=== PATIENT | female | born 1950 | race Caucasian/White ===

== ENCOUNTER 2021-01-10 09:18 | Day surgery (SDC) | payer OTHER, SELFPAY ==
[2021-01-05 12:14] VITALS: BMI 39.3
--- NOTE | 2021-01-07 08:21 | HO.ANESPROP2 ---
Documented by User: Torrie Dorothy 01/07/21 08:22 HPI - Anesthesia Eval Consult details Narrative: 70yo F for Colonoscopy PMFSH Past Medical History Medical History Anxiety Asthma Depression Diabetes Elevated cholesterol GERD (gastroesophageal reflux disease) HTN (hypertension) Sleep apnea TIA (transient ischemic attack) Surgical History Surgical History H/O colonoscopy History of bunionectomy History of esophagogastroduodenoscopy (EGD) Hx of cardiac catheterization Hx of cholecystectomy Hx of hysterectomy Social History Social History Patient Tobacco Use Status: Former Tobacco user Tobacco use type: Cigarette Use of substances other than those prescribed or required for medical reasons: No Advance Directives Information Provided: No Meds Allergies Allergy/AdvReac Type Severity Reaction Status Date / Time No Known Allergies Allergy Verified 01/10/21 11:12 [No Known Allergies*] Home Medications Medication Instructions Recorded Confirmed Last Taken Type albuterol sulfate [Ventolin HFA] 2 puff INHALATION QID PRN 01/05/21 01/05/21 Unknown History amlodipine 1 tab PO DAILY 01/05/21 01/05/21 Unknown History aripiprazole 1 tab PO BEDTIME 01/05/21 01/05/21 Unknown History atorvastatin 1 tab PO DAILY 01/05/21 01/05/21 Unknown History ferrous sulfate [FeroSul] 1 tab PO BID 01/05/21 01/05/21 Unknown History furosemide 1 tab PO DAILY 01/05/21 01/05/21 Unknown History metformin 1 tab PO BID 01/05/21 01/05/21 Unknown History metoprolol succinate 1 tab PO DAILY 01/05/21 01/05/21 Unknown History multivitamin 1 tab PO DAILY 01/05/21 01/05/21 Unknown History omeprazole 1 cap PO DAILY 01/05/21 01/05/21 Unknown History oxcarbazepine 1 tab PO BID 01/05/21 01/05/21 Unknown History trazodone 100 mg PO BEDTIME 01/05/21 01/05/21 Unknown History venlafaxine 75 mg PO BEDTIME 01/05/21 01/05/21 Unknown History venlafaxine 225 mg PO QAM 01/05/21 01/05/21 Unknown History aspirin 1 tab PO DAILY 01/10/21 01/10/21 01/09/21 08:00 History Exam Exam Date and Time: January 07, [id number] Height,Weight and Vital Signs: Height 5 ft 4 in Weight 103.873 kg Assessment and Plan Assessment Anesthesia Assessment: Chart Reviewed Documented by User: Kelly Wolff 01/10/21 11:28 PMFSH Past Medical History Medical History Anxiety Asthma Depression Diabetes Elevated cholesterol GERD (gastroesophageal reflux disease) HTN (hypertension) Sleep apnea TIA (transient ischemic attack) Surgical History Surgical History H/O colonoscopy History of bunionectomy History of esophagogastroduodenoscopy (EGD) Hx of cardiac catheterization Hx of cholecystectomy Hx of hysterectomy Social History Social History Patient Tobacco Use Status: Former Tobacco user Tobacco use type: Cigarette Use of substances other than those prescribed or required for medical reasons: No Advance Directives Information Provided: No Meds Allergies Allergy/AdvReac Type Severity Reaction Status Date / Time No Known Allergies Allergy Verified 01/10/21 11:12 [No Known Allergies*] Home Medications Medication Instructions Recorded Confirmed Last Taken Type albuterol sulfate [Ventolin HFA] 2 puff INHALATION QID PRN 01/05/21 01/05/21 Unknown History amlodipine 1 tab PO DAILY 01/05/21 01/05/21 Unknown History aripiprazole 1 tab PO BEDTIME 01/05/21 01/05/21 Unknown History atorvastatin 1 tab PO DAILY 01/05/21 01/05/21 Unknown History ferrous sulfate [FeroSul] 1 tab PO BID 01/05/21 01/05/21 Unknown History furosemide 1 tab PO DAILY 01/05/21 01/05/21 Unknown History metformin 1 tab PO BID 01/05/21 01/05/21 Unknown History metoprolol succinate 1 tab PO DAILY 01/05/21 01/05/21 Unknown History multivitamin 1 tab PO DAILY 01/05/21 01/05/21 Unknown History omeprazole 1 cap PO DAILY 01/05/21 01/05/21 Unknown History oxcarbazepine 1 tab PO BID 01/05/21 01/05/21 Unknown History trazodone 100 mg PO BEDTIME 01/05/21 01/05/21 Unknown History venlafaxine 75 mg PO BEDTIME 01/05/21 01/05/21 Unknown History venlafaxine 225 mg PO QAM 01/05/21 01/05/21 Unknown History aspirin 1 tab PO DAILY 01/10/21 01/10/21 01/09/21 08:00 History Exam Airway Mallampati Class: II (Edentulous) TM Dist: >3cm Neck ROM: Full Loose/Missing/Broken Teeth: Yes, Upper and Lower Heart: RRR Lungs: CTA Assessment and Plan Assessment Anesthesia Assessment: Anesthesia Plan Discussed and Chart Reviewed Final Anesthetic Review NPO: Yes ASA Class: III Final Preanesthetic Review: Meds/Allgs Chart Reviewed, Consent Obtained/Reviewed and Anes Risks/Benef Reviewed Patient Risk: Intermediate Procedure Risk: Low Anesthetic Plan Anesthetic Plan: MAC: Disposition: Standard PACU
[2021-01-10 10:40] LABS: Glucose, Whole Blood 148 mg/dL (60-115)
[2021-01-10 10:50] VITALS: BP 178/76; PULSE 66; RESP 20; TEMP 36.4; O2SAT 93
[2021-01-10] MEDS: Lactated Ringers 1,000 ML 100 ML IVCONT (11:14)
[2021-01-10 12:30] VITALS: BP 128/54; PULSE 73; RESP 18; TEMP 37.2; O2SAT 98
--- NOTE | 2021-01-10 12:39 | P.BOP_ITS ---
Brief Operative Note Date of Service: 01/10/21 Pre-op diagnosis: Screening Post-op diagnosis: other (Colon polyps) Procedure: Colonoscopy to cecum and TI with snare polypectomy at 15cm with placement of 2 Resolution clips and marking with ink, snare polypectomy at 60cm, and bx/removal of TC polyps Surgeon: Navin Lui Anesthesia: MAC Was an [employer] used for this Procedure?: No Estimated blood loss (mL): 4.0 Pathology: other (A. Transverse colon polyps B. Polyp at 15cm) Condition: stable Disposition: PACU
[2021-01-10 12:45] VITALS: BP 128/60; PULSE 73; RESP 18; TEMP 37.2; O2SAT 95
--- NOTE | 2021-01-10 13:21 | OP_ITS ---
SURGEON: Navin Lui MD INDICATIONS: The patient presents for evaluation of colorectal cancer screening and personal history of tubular adenomas of the colon. Full consent has been obtained from her for this, including risks of bleeding and perforation. PREOPERATIVE DIAGNOSIS: POSTOPERATIVE DIAGNOSIS: PROCEDURE PERFORMED: Colonoscopy to the cecum and terminal ileum with snare polypectomy, placement of 2 resolution clips on the polypectomy site at 15 cm, and biopsy and removal of polyps. ESTIMATED BLOOD LOSS: COMPLICATIONS: ANESTHESIA: Monitored anesthesia care. ASSISTANTS: SPECIMENS: PREOPERATIVE DIAGNOSES: Colorectal cancer screening and personal history of tubular adenomas of the colon. POSTOPERATIVE DIAGNOSES: Colorectal cancer screening and personal history of tubular adenomas of the colon, colon polyps, diverticulosis, and internal hemorrhoids. DESCRIPTION OF PROCEDURE: The patient was placed in the left lateral decubitus position. The digital rectal exam revealed no abnormalities. The [employer] video pediatric colonoscope was entered into the rectum and advanced easily to the cecum. Once in the cecum, I did identify normal-appearing cecal pouch with appendiceal orifice and a normal-appearing ileocecal valve. The terminal ileum was cannulated and appeared normal. The scope was withdrawn back in the colon. The entire cecum and ileocecal valve appeared normal. The scope was slowly withdrawn assessing all mucosal surfaces carefully. Preparation was excellent. In the transverse colon, were 2 flat approximately 5 mm polyps, which were each biopsied and completely removed with the cold biopsy forceps, and placed in the same container. At 60 cm, was an approximately 8 mm polyp, which was snared, but not recovered. The polypectomy site appeared clean, without any sign of residual polyp nor bleeding. At 15 cm, was an approximately 2 to 2.5 cm ulcerated polyp on a fairly long stalk. The tip of the polyp was quite friable. I used 2 resolution clips to deploy at the base of the stalk with good deployment and good hemostasis. I then used a snare to remove the polyp just above the clips. The polyp was then recovered by retrieving it on the tip of the scope. The scope was readvanced back to the polypectomy site. The tip of the stalk just above the clip was well cauterized and there was no sign of any residual polyp nor bleeding. The area was irrigated and observed for at least 5 minutes without any bleeding. I did place a submucosal ink qian just proximal and just distal to the polypectomy site given the gross appearance of the polyp. There were small 5 mm or less polyps between 20 cm and the rectum, but these were not removed at this time. Once in the rectum, scope was retroflexed visualizing some small internal hemorrhoids, but no other pathology. The scope was straightened. Of note, there was also some [id number] amount of sigmoid diverticulosis. The scope was withdrawn from the patient. She tolerated the procedure well and was returned to the recovery area in stable condition. IMPRESSION: 1. Colon polyps, status post snare polypectomy with placement of resolution clips and marking with submucosal ink for the polyp at 15 cm, as well as biopsy and removal of polyps. 2. Diverticulosis. 3. Internal hemorrhoids. PLAN: The results of the pathology will be checked. Depending upon the results of the larger polyp at 15 cm, we would then determine when she needs her next colonoscopy. She was advised not to use any aspirin or NSAIDs for 1 week. This has been discussed with her daughter. MD PAIGE Cnator/RL / [phone] MTDDebra
== END 2021-01-10 14:05 | disposition home or self-care (01) ==
PROVIDERS: PCP Family Medicine; Visit Provider Internal Medicine
PROC: 0DJD8ZZ Inspection of Lower Intestinal Tract, Via Natural or Artificial Opening Endoscopic (ICD-10-PCS; CPT 45378; principal; 2021-01-10 10:50)
DX: Z12.11 Encounter for screening for malignant neoplasm of colon (principal); Z86.010 Personal history of colon polyps; D12.3 Benign neoplasm of transverse colon; K63.5 Polyp of colon; K57.30 Diverticulosis of large intestine without perforation or abscess without bleeding; K64.8 Other hemorrhoids; K58.2 Mixed irritable bowel syndrome; K21.9 Gastro-esophageal reflux disease without esophagitis; J45.909 Unspecified asthma, uncomplicated; F32.9 Major depressive disorder, single episode, unspecified; E11.9 Type 2 diabetes mellitus without complications; I10 Essential (primary) hypertension; G47.33 Obstructive sleep apnea (adult) (pediatric); Z79.84 Long term (current) use of oral hypoglycemic drugs; Z99.89 Dependence on other enabling machines and devices; Z79.899 Other long term (current) drug therapy; Z86.73 Personal history of transient ischemic attack (TIA), and cerebral infarction without residual deficits; Z79.82 Long term (current) use of aspirin
CPT/HCPCS: 45385; 45380; 45381; 82947; 88305

== ENCOUNTER 2021-04-08 07:19 | Outpatient (REF) | payer OTHER, SELFPAY | END 2021-04-08 07:20 | disposition home or self-care (01) | LOC: HO.HOSX 07:19 | PROVIDERS: Visit Provider Physician Assistant | DX: Z13.89 Encounter for screening for other disorder (principal) ==

== ENCOUNTER 2021-04-28 08:25 | Outpatient (REF) | payer OTHER, SELFPAY ==
--- NOTE | ~2021-04-28 | XR_ITS ---
EXAMINATION: XR KNEE, BILATERAL XR KNEE, RIGHT CLINICAL INFORMATION: Pain COMPARISON: 11/28/2016 TECHNIQUE: AP standing view of both knees. Lateral and sunrise views of the right knee. FINDINGS: Right knee: No fracture or subluxation. Moderate to severe medial compartment joint space narrowing. Mild patellofemoral compartment narrowing. Tricompartmental marginal osteophytes. No joint effusion. The appearance has progressed from 2017. Left knee: On the single view of the left knee there is no fracture or subluxation. Mild narrowing of the medial compartment is similar to prior. Vascular calcifications noted. XR/XR knee RT 2V IMPRESSION: Moderate tricompartmental degenerative changes of the right knee, progressed from 2017.
--- NOTE | ~2021-04-28 | XR_ITS ---
EXAMINATION: XR KNEE, BILATERAL XR KNEE, RIGHT CLINICAL INFORMATION: Pain COMPARISON: 11/28/2016 TECHNIQUE: AP standing view of both knees. Lateral and sunrise views of the right knee. FINDINGS: Right knee: No fracture or subluxation. Moderate to severe medial compartment joint space narrowing. Mild patellofemoral compartment narrowing. Tricompartmental marginal osteophytes. No joint effusion. The appearance has progressed from 2017. Left knee: On the single view of the left knee there is no fracture or subluxation. Mild narrowing of the medial compartment is similar to prior. Vascular calcifications noted. XR/XR knee standing BI IMPRESSION: Moderate tricompartmental degenerative changes of the right knee, progressed from 2017.
== END 2021-04-28 08:26 | disposition home or self-care (01) ==
LOC: HO.HOSX 08:25
PROVIDERS: Visit Provider Orthopaedic Surgery
DX: M17.11 Unilateral primary osteoarthritis, right knee (principal); E11.9 Type 2 diabetes mellitus without complications; E66.01 Morbid (severe) obesity due to excess calories
CPT/HCPCS: 20610; 73560; 73565; 99202; J1040; J1100

== ENCOUNTER 2021-09-07 09:00 | Outpatient (RCR) | payer OTHER, SELFPAY | END 2021-11-01 10:17 | disposition home or self-care (01) | LOC: HO.OT 09:00 | PROVIDERS: PCP Family Medicine; Visit Provider Family Medicine | DX: I89.0 Lymphedema, not elsewhere classified (principal) | CPT/HCPCS: 97140 ==

== ENCOUNTER → 2021-09-22 08:35 | Outpatient (BNVA) | payer OTHER, SELFPAY | PROVIDERS: PCP Family Medicine; Visit Provider Orthopaedic Surgery | DX: M17.11 Unilateral primary osteoarthritis, right knee (principal); E11.9 Type 2 diabetes mellitus without complications | CPT/HCPCS: 20610; 99212; J1100 ==

== ENCOUNTER → 2022-01-23 15:19 | Outpatient (BNVA) | payer OTHER, SELFPAY | PROVIDERS: PCP Family Medicine; Visit Provider Physician Assistant | DX: M17.11 Unilateral primary osteoarthritis, right knee (principal); E11.9 Type 2 diabetes mellitus without complications | CPT/HCPCS: 20610; 99212; J1020 ==

== ENCOUNTER 2022-07-04 10:42 | Outpatient (REF) | payer OTHER, SELFPAY | END 2022-07-04 10:43 | disposition home or self-care (01) | LOC: HO.LAB 10:42 | PROVIDERS: Visit Provider Nurse Practitioner Family | DX: R30.0 Dysuria (principal) | CPT/HCPCS: 87086 ==

== ENCOUNTER 2022-11-06 10:37 | Outpatient (REF) | payer OTHER, SELFPAY | END 2022-11-06 10:38 | disposition home or self-care (01) | LOC: HO.HOSX 10:37 | PROVIDERS: Visit Provider Physician Assistant | DX: Z13.89 Encounter for screening for other disorder (principal) ==

== ENCOUNTER 2022-12-07 08:32 | Outpatient (REF) | payer OTHER, SELFPAY | END 2022-12-07 08:33 | disposition home or self-care (01) | LOC: HO.HOSX 08:32 | PROVIDERS: Visit Provider Physician Assistant | DX: Z13.89 Encounter for screening for other disorder (principal) ==

== ENCOUNTER 2023-12-13 15:12 | Emergency (ER) | payer OTHER, SELFPAY ==
--- NOTE | ~2023-12-13 | XR_ITS ---
EXAMINATION: XR HIP, LEFT CLINICAL INFORMATION: Left pelvic pain after fall COMPARISON: None available. TECHNIQUE: Two views of the left hip. FINDINGS: No fracture, dislocation or destructive process. There is degenerative change of both hips right greater than left. The pelvis is intact. SI joints are symmetric. There is advanced degenerative change throughout the lumbar spine. XR/XR hip LT w PEL1V IMPRESSION: Chronic changes noted. No fracture.
[2023-12-13 15:23] VITALS: BP 126/68; PULSE 59; O2SAT 96
[2023-12-13 15:27] VITALS: BP 139/54; PULSE 60; RESP 17; TEMP 37; O2SAT 97; BMI 28.3
--- NOTE | 2023-12-13 15:39 | ED.FALL ---
HPI - Fall General Chief Complaint: Fall Stated Complaint: right side pain after fall Time Seen by Provider: 12/13/23 15:39 Source: patient Mode of arrival: EMS Limitations: no limitations History of Present Illness ED Provider: Himanshu HPI Narrative: 73-year-old female with history of morbid obesity, OA, diabetes presents after a fall at home. Patient states she was trying to use the bathroom, her pants were around her knees, she subsequently tripped, falling backwards landing on her buttock. Patient complains of left buttock pain. Patient did not strike her head, no loss consciousness, no preceding palpitations or chest pain. MD complaint: fall Related Data Home Medications ?Medication ?Instructions ?Recorded ?Confirmed albuterol sulfate 90 mcg/actuation 2 puff inhalation QID PRN Wheezing 01/05/21 01/05/21 aerosol inhaler (Ventolin HFA) amlodipine 10 mg tablet 1 tab PO DAILY 01/05/21 01/05/21 aripiprazole 20 mg tablet 1 tab PO BEDTIME 01/05/21 01/05/21 atorvastatin 40 mg tablet 1 tab PO DAILY 01/05/21 01/05/21 ferrous sulfate 325 mg (65 mg 1 tab PO BID 01/05/21 01/05/21 iron) tablet (FeroSul) furosemide 40 mg tablet 1 tab PO DAILY 01/05/21 01/05/21 metformin 500 mg tablet 1 tab PO BID 01/05/21 01/05/21 metoprolol succinate 100 mg 1 tab PO DAILY 01/05/21 01/05/21 tablet,extended release 24 hr multivitamin 1 tab PO DAILY 01/05/21 01/05/21 omeprazole 20 mg capsule,delayed 1 cap PO DAILY 01/05/21 01/05/21 release oxcarbazepine 150 mg tablet 1 tab PO BID 01/05/21 01/05/21 trazodone 50 mg tablet 100 mg PO BEDTIME 01/05/21 01/05/21 venlafaxine 75 mg tablet 75 mg PO BEDTIME 01/05/21 01/05/21 venlafaxine 75 mg tablet,extended 225 mg PO QAM 01/05/21 01/05/21 release 24 hr aspirin 81 mg tablet,delayed 1 tab PO DAILY 01/10/21 01/10/21 release empagliflozin 10 mg tablet 10 mg PO DAILY 09/22/21 (Jardiance) Previous Rx's ?Medication ?Instructions ?Recorded nitrofurantoin macrocrystal 100 mg 100 mg PO Q12H 5 days #10 caps 07/04/22 capsule triamcinolone acetonide 0.025 % 1 appl topical BID #15 grams 07/04/22 topical ointment Allergies Allergy/AdvReac Type Severity Reaction Status Date / Time No Known Allergies Allergy Verified 12/13/23 15:29 [No Known Allergies*] Review of Systems Review of Systems: Yes all other systems are reviewed and are negative Constitutional: Constitutional: Reports no additional constitutional complaints and Denies fever(s) Cardiovascular: Cardiovascular: Denies chest pain, Denies palpitations and Denies dyspnea Respiratory: Respiratory: Denies dyspnea Musculoskeletal: Musculoskeletal: Reports arthralgias Endocrine: Endocrine: Denies palpitations PMFSH Past Medical History Attestation statement: The following information was validated with the patient. Medical History Anxiety Asthma Depression Diabetes Elevated cholesterol GERD (gastroesophageal reflux disease) HTN (hypertension) Sleep apnea TIA (transient ischemic attack) Surgical History H/O colonoscopy History of bunionectomy History of esophagogastroduodenoscopy (EGD) Hx of cardiac catheterization Hx of cholecystectomy Hx of hysterectomy Social History Social History Patient Tobacco Use Status: Former Tobacco user Tobacco use type: Cigarette Smoked in Last 30 Days: No Advance Directives: Yes Advance Directives Information Provided: No Advance Directives on File: No Physical Exam Vital Signs: Vital Signs: Last Vital Signs Temp 98.6 F 12/13/23 15:27 Pulse 60 12/13/23 15:27 Resp 17 12/13/23 15:27 BP 139/54 L 12/13/23 15:27 Pulse Ox 97 12/13/23 15:27 O2 Del Method Room Air 12/13/23 15:27 BMI result Body Mass Index 28.3 Const: Other: Alert well in appearance, no sign of head trauma on exam Eyes: Pupils: Equal, round and reactive pupils present Neck: Other: Soft supple, full range of motion no midline tenderness Resp: Other: Nonlabored respiration Cardio: Other: Normal peripheral perfusion Skin: Other: No rash Neuro: Other: Alert and oriented x3 Cranial nerves: Yes Equal, round and reactive pupils present Extrem: Other: Patient has full range of motion of the left lower extremity, she is able to perform straight leg raise greater than 30?, she can flex and extend from the knee, no deformity noted over the left hip. Palpable pain over left posterior pelvis Psych: Other: , cooperative Medications Administered Discontinued Medications Generic Name Dose Route Start Last Admin Trade Name Carlotta PRN Reason Stop Dose Admin Acetaminophen 975 mg 12/13/23 15:43 12/13/23 15:50 Acetaminophen 325 Mg Tablet PO 12/13/23 15:44 975 mg ONCE ONE Administration Ibuprofen 600 mg 12/13/23 15:43 12/13/23 15:50 Ibuprofen 600 Mg Tablet PO 12/13/23 15:44 Not Given ONCE ONE Medical Decision Making Medical Decision Making MDM Narrative: 73-year-old female with history of morbid obesity, OA, diabetes presents after a fall at home. Patient states she was trying to use the bathroom, her pants were around her knees, she subsequently tripped, falling backwards landing on her buttock. Patient complains of left buttock pain. Patient did not strike her head, no loss consciousness, no preceding palpitations or chest pain. Problem: Age, obesity, diabetes History: Per patient I have considered the following differential diagnoses: Fracture, dislocation, contusion, musculoskeletal strain Plan: Ordering an x-ray, I have very low suspicion for fracture or dislocation, no indication for labs. Giving Tylenol and ibuprofen I have independently reviewed the following tests: X-ray left hip with pelvis:EXAMINATION: XR HIP, LEFT CLINICAL INFORMATION: Left pelvic pain after fall COMPARISON: None available. TECHNIQUE: Two views of the left hip. FINDINGS: No fracture, dislocation or destructive process. There is degenerative change of both hips right greater than left. The pelvis is intact. SI joints are symmetric. There is advanced degenerative change throughout the lumbar spine. XR/XR hip LT w PEL1V IMPRESSION: Chronic changes noted. No fracture. Differential Diagnosis Differential Diagnoses: The differential diagnosis associated with the presentation includes Fracture, dislocation, contusion, musculoskeletal strain Discharge Plan Discharge Clinical Impression: Contusion of left buttock Patient Disposition: Home, Self-Care Instructions: Contusion in Adults (ED) Additional Instructions: The x-ray of your left hip and pelvis were negative for fracture. You sustained a contusion, this is another word for bruise. See home care instructions. You can use [id number]-[id number] acetaminophen 1000 mg taken every 8 hours, alternated with use of [id number] ibuprofen 600 mg every 6 hours with food, for your discomfort. Follow up with your primary care provider as needed Prescriptions: No Action multivitamin Tablet 1 tab PO DAILY furosemide 40 mg tablet 1 tab PO DAILY atorvastatin 40 mg tablet 1 tab PO DAILY metformin 500 mg tablet 1 tab PO BID oxcarbazepine 150 mg tablet 1 tab PO BID venlafaxine 75 mg Tablet 75 mg PO BEDTIME trazodone 50 mg tablet 100 mg PO BEDTIME metoprolol succinate 100 mg tablet extended release 24 hr 1 tab PO DAILY amlodipine 10 mg tablet 1 tab PO DAILY ferrous sulfate [FeroSul] 325 mg (65 mg iron) tablet 1 tab PO BID omeprazole 20 mg capsule,delayed release(DR/EC) 1 cap PO DAILY albuterol sulfate [Ventolin HFA] 90 mcg/actuation Hfa Aerosol Inhaler 2 puff INHALATION QID PRN (Reason: Wheezing) aripiprazole 20 mg tablet 1 tab PO BEDTIME venlafaxine 75 mg tablet extended release 24hr 225 mg PO QAM aspirin 81 mg tablet,delayed release (DR/EC) 1 tab PO DAILY nitrofurantoin macrocrystal 100 mg capsule 100 mg PO Q12H 5 Days Qty: 10 0RF Rx Instructions: must administer with a meal/food triamcinolone acetonide 0.025 % ointment 1 appl topical BID Qty: 15 1RF Rx Instructions: Apply to irritated vulvar area twice a day. Jardiance 10 mg tablet 10 mg PO DAILY Print Language: Telugu
[2023-12-13] MEDS: Acetaminophen 325 MG TABLET 975 MG PO (15:50)
[2023-12-13 17:43] VITALS: BP 160/61; PULSE 68; RESP 18; TEMP 36.7; O2SAT 96
== END 2023-12-13 18:03 | disposition home or self-care (01) ==
PROVIDERS: Emergency Provider Emergency Medicine; PCP Family Medicine
DX: S30.0XXA Contusion of lower back and pelvis, initial encounter (principal); E11.9 Type 2 diabetes mellitus without complications; I10 Essential (primary) hypertension; Z86.73 Personal history of transient ischemic attack (TIA), and cerebral infarction without residual deficits; W19.XXXA Unspecified fall, initial encounter; Y93.9 Activity, unspecified; Y92.009 Unspecified place in unspecified non-institutional (private) residence as the place of occurrence of the external cause; Y99.9 Unspecified external cause status
CPT/HCPCS: 73502; 99283; 99284

== ENCOUNTER 2024-12-24 08:55 | Outpatient (AMB) | payer OTHER, SELFPAY ==
--- NOTE | 2024-12-24 08:56 | MHC.OFFVIS ---
Vital Signs 12/24/24 09:05 Weight 208 lb BP 161/70 H Blood Pressure Location Rt brachial Position Sitting Pulse 67 Intake Visit Reasons: Hemorrhoids Intake Note: Patient referred by Dr. Lui for external hemorrhoids. Taking fiber pills. Patient c/o: pain and bleeding noticed when wiping after BM. Frequent ER visits due to bleeding. Having black stools. Information Assurance Required: No Accompanied by: daughter Jen Allergies No Known Allergies (No Known Allergies*) Allergy (Verified 12/24/24 09:02) Medication List - Last Reconciled 12/24/24 by Mehul Sarkar MD amlodipine 1 tab PO DAILY aripiprazole 1 tab PO BEDTIME aspirin 1 tab PO DAILY atorvastatin 1 tab PO DAILY ferrous sulfate (FeroSul) 1 tab PO BID furosemide 1 tab PO DAILY metformin 1 tab PO BID metoprolol succinate ER 1 tab PO DAILY multivitamin 1 tab PO DAILY omeprazole 1 cap PO DAILY psyllium seed (sugar) (Metamucil (sugar) oral powder) 1 tbsp PO BID trazodone 100 mg PO BEDTIME triamcinolone acetonide 0.025% 1 appl topical BID venlafaxine 75 mg PO BEDTIME venlafaxine ER 225 mg PO QAM HPI HPI Hemorrhoids: Details: [age] year old referred for hemorrhoid issues. She says she has had hemorrhoids for many years although this has been minimally problematic. However, for the past year, she describes frequent bleeding with bowel movements along with some pain and swelling. She says that she has IBS and has a problem with chronic constipation and diarrhea. She says that her hemorrhoids become painful with her bowel movements. She had a colonoscopy about [address] Lui and she says she had 2 small polyps removed. She is not on blood thinners. She does not ambulate because of chronic back problems. She is usually in a wheelchair although she is able to walk short distances at home. [facility] Medical History (Updated 12/24/24 @ 09:23 by Mehul Sarkar MD) Bleeding hemorrhoids TIA (transient ischemic attack) Asthma Anxiety Depression Sleep apnea Diabetes GERD (gastroesophageal reflux disease) Elevated cholesterol HTN (hypertension) Surgical History Hx of cardiac catheterization Hx of hysterectomy Hx of cholecystectomy H/O colonoscopy History of esophagogastroduodenoscopy (EGD) History of bunionectomy Social History Patient Tobacco Use Status: Former Tobacco user Tobacco use type: Cigarette Review of Systems Const Denies chills and Denies fever(s) Card Denies chest pain, Denies dyspnea and Denies dyspnea on exertion Resp Denies cough, Denies dyspnea and Denies dyspnea on exertion GI Reports hematochezia, Denies change in bowel habits, Reports constipation and Reports diarrhea Denies hematuria Musc Reports back pain, Reports arthralgias and Reports limited range of motion Neuro Denies focal weakness and Denies convulsions Psych Denies depression and Denies mood swings Physical Exam Const Other: On wheelchair General: comfortable and no acute distress Nutritional Appearance: obese Orientation/consciousness: patient oriented x3 Neck Neck: Yes no lymphadenopathy Resp Auscultation: clear to auscultation bilaterally Cardio Rhythm: regular rhythm GI Other: Rectal exam shows internal external hemorrhoids with prolapse internal component both left and right side Palpation (GI): Soft to palpation, nontender and no guarding Neuro General: patient oriented x3 Office Procedures Anoscopy She was in kneeling phyllis-knife position. The anoscope was gently inserted a full examination of the anal canal was done. She did have internal external hemorrhoids on both the left and right side which appeared to be moderate size. The internal component seemed to prolapse easily on both left and right. There were no other lesions. There was no fissure. There was no ulceration. There was no induration. There was no bleeding currently. [id number] Assessment & Plan Assessment & Plan (1) Bleeding hemorrhoids: Code(s): K64.9 - Unspecified hemorrhoids Category: Medical Plan: She has internal and external hemorrhoids along with periodic pain and bleeding. She does have a problem with chronic constipation and diarrhea because of the IBS I explained to her that the 1st step with managed being her hemorrhoid issues would be to control her bowel movements well. I would recommend putting her on a regimen of Metamucil powder, 1 tbsp in a glass of juice or water twice a day. I explained to her what hemorrhoids surgery is and I explained to her the risks including but not limited to bleeding, infections, inherent risks of anesthesia especially with her age She understands and will come back to me in about [address] Lui closely. I told her that I do not think she needs urgent colonoscopy at this time. Medications: New psyllium seed (sugar) (Metamucil (sugar) oral powder) 1 tbsp PO BID 1,254 grams 2RF Coding Level of Care Code New Pt Level 3 (16471) Diagnoses Bleeding hemorrhoids K64.9 CPT Codes Details - CPT: 96472-Poxpawes ([id number])
[2024-12-24 09:05] VITALS: BP 161/70; PULSE 67
--- OUTSIDE RECORDS SUMMARY | 2024-12-24 09:33 | XMS_ITS | Clinical Summary ---
Author Organization [address] [facility] Address [address] [place] [address] Phone Care Team Providers Care Take Down Inspector Name Role Phone Darnell Verduzco MD Primary Care Provider [phone] Allergies No known active allergies Medications apixaban (ELIQUIS) 5 mg tablet Take by mouth. Active clotrimazole (LOTRIMIN) 1 % cream Apply to skin daily for 6 weeks 3 Active empagliflozin (Jardiance) 10 mg tablet Take 1 tablet (10 mg total) by mouth 1 (one) time each day. Active Lactobacillus acidophilus capsule Take by mouth. Active acetaminophen (TYLENOL) 325 mg tablet Take 2 tablets (650 mg total) by mouth every 6 (six) hours if needed. Active Lactobacillus acidophilus (PROBIOTIC ORAL) Take by mouth. Active amLODIPine (NORVASC) 5 mg tablet Take 1 tablet (5 mg total) by mouth 1 (one) time each day. Active ARIPiprazole (ABILIFY) 20 mg tablet Take 1 tablet (20 mg total) by mouth 1 (one) time each day. Active aspirin 81 mg EC tablet Take 1 tablet (81 mg total) by mouth 1 (one) time each day. Active atorvastatin (LIPITOR) 40 mg tablet Take 1 tablet (40 mg total) by mouth 1 (one) time each day. Active ferrous sulfate 325 mg (65 mg elemental iron) tablet Take 1 tablet (325 mg total) by mouth 1 (one) time each day. Active folic acid (FOLVITE) 1 mg tablet Take 1 tablet (1,000 mcg total) by mouth 1 (one) time each day. Active glucagon (GLUCAGEN INJ) Inject as directed. Active furosemide (LASIX) 40 mg tablet Take 1 tablet (40 mg total) by mouth 1 (one) time each day. Active metFORMIN (GLUCOPHAGE) 500 mg tablet Take 1 Tablet by mouth 2 times daily (with meals). Active metoprolol succinate (TOPROL-XL) 100 mg 24 hr tablet Take 1 tablet (100 mg total) by mouth 1 (one) time each day. Active metroNIDAZOLE (FLAGYL) 500 mg tablet Take 1 Tablet by mouth 3 times daily. Active omeprazole (PriLOSEC) [address] capsule Take 1 capsule (20 mg total) by mouth 1 (one) time each day. Active OXcarbazepine (TRILEPTAL) 150 mg tablet Take 1 tablet (150 mg total) by mouth 2 (two) times a day. Active traZODone (DESYREL) 50 mg tablet Take 1 Tablet by mouth at bedtime. Active venlafaxine (EFFEXOR) 100 mg tablet Take 1 Tablet by mouth 3 times daily. Active venlafaxine (EFFEXOR) 50 mg tablet Take 1 Tablet by mouth 3 times daily. Active lidocaine (LIDODERM) 5 % patchIndications:D iabetic mononeuropathy simplex (CMS/HCC V24, CMS/HCC V28) Apply 1 patch topically 1 (one) time each day. Remove & discard patch within 12 hours or as directed by . 30 each 2 01/07/20 25 Active Active Problems No known active problems Encounters Date Type Department Care Team Description 11/20/2024 3:10 PM EDT - 11/20/2024 9:[address] [facility] [address] [place] [phone] Rodríguez Smith, Rectal bleeding (Primary Dx) Discharge Disposition: Home or Self Care 10/25/2024 6:51 PM EDT - 10/26/2024 1:[address] [facility] [address] [place] [address] [phone] Nausea (Primary Dx); Chest pain, unspecified type Discharge Disposition: Home or Self Care 10/08/2024 9:00 AM EDT Office Visit Orthopedic Surgery - [address] [phone] Usman Frye, DPM Diabetic mononeuropathy simplex ([facility] V24, [facility] V28) (Primary Dx); Ankle instability, left; Peripheral venous insufficiency; Dermatophytosis of nail; Pain in toe of left foot; Pain in toe of right foot; Type II diabetes mellitus with peripheral circulatory disorder ([facility] V24, [facility] V28); Corns and callosities from Last 3 Months Surgical History Surgery Date Site/Laterality Comments OTHER SURGICAL HISTORY 04/06/2022 PROCEDURE: AK REVSC OPN/PRQ FEM/POP W/ATHRC/ANGIOP SM VSL OTHER SURGICAL HISTORY 04/06/2022 PROCEDURE: ULTRASOUND GUIDANCE FOR VASCULAR AC Medical History Medical History Date Comments Diabetes mellitus ([facility] V24, [facility] V28) Social History Tobacco Use Types Packs/Day Years Used Date Smoking Tobacco: Never Smokeless Tobacco: Never Tobacco Cessation:Counseling Given: Not Answered Alcohol Use Standard Drinks/Week Comments Never 0 (1 standard drink = 0.6 oz pur e alcohol) Comments Unknown Sex and Gender Information Value Date Recorded Sex Assigned at Female 06/18/2024 3:06 PM EST Legal Sex Female 6:44 AM EST Gender Identity Female 06/18/2024 3:06 PM EST Sexual Orientation Not on file Obstetrics History Last Filed Vital Signs Vital Sign Reading Time Taken Comments Blood Pressure 154/75 11/20/2024 3:15 PM EDT Pulse 86 11/20/2024 3:15 PM EDT Temperature 36.9 C (98.5 F) 11/20/2024 3:15 PM EDT Respiratory Rate 18 11/20/2024 3:15 PM EDT Oxygen Saturation 95% 11/20/2024 3:15 PM EDT Inhaled Oxygen Concentration - - Weight 95.3 kg (210 lb) 11/20/2024 3:15 PM EDT Height 165.1 cm (5' 5 ) 11/20/2024 3:15 PM EDT Body Mass Index 34.95 11/20/2024 3:15 PM EDT Plan of Treatment Upcoming Encounters Date Type Department Care Team (Late st Contact Info) Description 01/08/2025 9:00 AM EDT Office Visit Orthopedic Surgery - [address] [phone] Usman Frye, DPM [facility] [address] [place] [address] Health Maintenance Due Date Last Done Comments Diabetes: Annual Foot Exam 01/12/1960 Diabetes: Annual Retina Eye Exam 01/12/1958 Zoster Vaccines (1 of 2) 11/10/2011 09/15/2011 Cholesterol Screening (Lipid Panel) 06/04/2022 Depression Screening 06/04/2022 Falls Risk Assessment 06/04/2022 Hepatitis C Screening 06/04/2022 Medicare Annual Wellness Visit 06/04/2022 Osteoporosis Screening (Bone Density Screening) 06/04/2022 Social Influencers of Health Screening 06/04/2022 RSV Immunization Adult Patients (1 - 1-dose 75+ series) 01/12/2023 COVID-19 Vaccine ( season) 2024 04/03/2022, 05/19/2021, 09/27/2020 Diabetes: Annual Urine Albumin-Creatinine Ratio (uACR) 05/06/2024 Diabetes: Blood Sugar Control Test (HGBA1C) 11/13/2024 05/16/2024 Diabetes: Annual GFR (Glomerular Filtration Rate) 11/20/2025 11/20/2024, 10/25/2024, 09/15/2024, Additional history exists Hypertension/CHF/CAD Annual BMP Blood Test 11/20/2025 11/20/2024, 10/25/2024, 09/15/2024, Additional history exists DTaP,Tdap,and Td Vaccines (3 - Td or Tdap) 06/18/2030 06/18/2020, 03/09/2015 Pneumococcal Vaccine: 50+ Years Completed 04/18/2017, 12/11/2014, 11/09/2014, Additional history exists Influenza Vaccine Completed 06/03/2024, , 05/14/2023, Additional history exists HIB Vaccines Aged Out No longer eligi ble based on patient's age to complete this topic HPV Vaccines Aged Out No longer eligi ble based on patient's age to complete this topic Hepatitis A Vaccines Aged Out No long er eligible based on patient's age to complete this topic Hepatitis B Vaccines Aged Out No long er eligible based on patient's age to complete this topic IPV Vaccines Aged Out No longer eligi ble based on patient's age to complete this topic MMR Vaccines Aged Out No longer eligi ble based on patient's age to complete this topic Meningococcal ACWY Vaccine Aged Out N o longer eligible based on patient's age to complete this topic Meningococcal B Vaccine Aged Out No l onger eligible based on patient's age to complete this topic RSV Immunization Patients Under 20 months Aged Out No longer eligible based on patient's age to complete this topic Varicella Vaccines Aged Out No longer eligible based on patient's age to complete this topic Procedures Procedure Name Priority Date/Time Associated Diagnosis Comments ECG ANNOTATED 11/21/2024 URINALYSIS WITH REFLEX MICROSCOPIC STAT 11/20/2024 7:29 PM EDT URINALYSIS WITH REFLEX MICROSCOPIC STAT 11/20/2024 7:[address] ABDOMEN PELVIS W CONTRAST STAT 11/20/2024 5:39 PM EDT ECG 12-LEAD STAT 11/20/2024 3:36 PM EDT CBC WITH AUTO DIFFERENTIAL STAT 11/20/2024 3:29 PM EDT LIPASE STAT 11/20/2024 3:29 PM EDT COMPREHENSIVE METABOLIC PANEL STAT 11/20/2024 3:29 PM EDT CBC AND DIFFERENTIAL STAT 11/20/2024 3:29 PM EDT ECG ANNOTATED 10/27/2024 CT ANGIO CHEST WO AND/OR W CONTRAST STAT 10/25/2024 8:50 PM EDT Chest pain, unspecified type CT CERVICAL SPINE WO CONTRAST STAT 10/25/2024 8:[address] HEAD WO CONTRAST STAT 10/25/2024 8 :50 PM EDT ECG 12-LEAD STAT 10/25/2024 8:35 PM EDT TROPONIN I HIGH SENSITIVITY STAT 10/25/2024 8:29 PM EDT [id number], RSV, FLU A AND B QUALITATIVE RT-PCR, INTERNAL LAB STAT 10/25/2024 8:29 PM EDT XR CHEST 2 VIEWS STAT 10/25/2024 7:39 PM EDT ECG 12-LEAD STAT 10/25/2024 7:15 PM EDT CBC WITH AUTO DIFFERENTIAL STAT 10/25/2024 7:11 PM EDT B-TYPE NATRIURETIC PEPTIDE STAT 10/25/2024 7:11 PM EDT MAGNESIUM STAT 10/25/2024 7:11 PM EDT LIPASE STAT 10/25/2024 7:11 PM EDT COMPREHENSIVE METABOLIC PANEL STAT 10/25/2024 7:11 PM EDT CBC AND DIFFERENTIAL STAT 10/25/2024 7:11 PM EDT TROPONIN I HIGH SENSITIVITY STAT 10/25/2024 7:11 PM EDT HEMOGLOBIN A1C STAT 05/16/2024 11:42 AM EST from Last 3 Months or Most Recently Relevant to Health Maintenance Results * ECG-Annotated (11/21/2024) Only the most recent of2 resultswithin the time period is included. us Provider Onbase MD ECG ORDERABLES Final Result * (ABNORMAL) Urinalysis with reflex microscopic (11/20/2024 7:29 PM EDT) Specific [place] Urine 1.040(H) 1.003 - 1.030 LAB URINALYSIS - AUTOMATED METHOD 11/20/2024 7:50 PM [facility] pH, Urine 8.0 5.0 - 8.0 pH LAB URINALYSIS - AUTOMATED METHOD 11/20/2024 7:50 PM [facility] Leukocytes, Urine Moderate(A) Negative LAB URINALYSIS - AUTOMATED METHOD 11/20/2024 7:50 PM [facility] Nitrite, Urine Negative Negative LAB URINALYSIS - AUTOMATED METHOD 11/20/2024 7:50 PM [facility] Protein, Urine Trace <=Trace mg/dL LAB URINALYSIS - AUTOMATED METHOD 11/20/2024 7:50 PM [facility] Glucose, Urine Negative Negative mg/dL LAB URINALYSIS - AUTOMATED METHOD 11/20/2024 7:50 PM [facility] Ketones, Urine Negative Negative mg/dL LAB URINALYSIS - AUTOMATED METHOD 11/20/2024 7:50 PM [facility] Urobilinogen , Urine 1.0 0.2 - 1.0 mg/dL LAB URINALYSIS - AUTOMATED METHOD 11/20/2024 7:50 PM [facility] Bilirubin, Urine Negative Negative LAB URINALYSIS - AUTOMATED METHOD 11/20/2024 7:50 PM [facility] Blood, Urine Moderate(A) Negative LAB URINALYSIS - AUTOMATED METHOD 11/20/2024 7:50 PM [facility] RBC, Urine 4.2(H) 0 - 4 /HPF LAB URINALYSIS - AUTOMATED METHOD 11/20/2024 7:50 PM [facility] WBC, Urine 9.0(H) 0 - 4 /HPF LAB URINALYSIS - AUTOMATED METHOD 11/20/2024 7:50 PM [facility] Squamous Epithelial, Urine 100(H) 0 - 60 /LPF LAB URINALYSIS - AUTOMATED METHOD 11/20/2024 7:50 PM EDT [facility] Bacteria, Urine Negative Negative /HPF LAB URINALYSIS - AUTOMATED METHOD 11/20/2024 7:50 PM EDT [facility] Hyaline Casts, Urine 0.0 0 - 3 /LPF LAB URINALYSIS - AUTOMATED METHOD 11/20/2024 7:50 PM EDT [facility] Urine Urine specimen obtained by clean catch procedure / Unknown Non-blood Collection / Unknown 11/20/2024 7:29 PM EDT 11/20/2024 7:43 PM EDT us Rodríguez Smith DO LAB URINE ORDERABLES Final Res ult [facility] [address] [place] [address], [place] [phone] * CT Abdomen Pelvis w Contrast (11/20/2024 5:39 PM EDT) Anatomical Region Laterality Modality Body Computed Tomogra phy 11/20/2024 6:03 PM EDT Impressions 11/20/2024 6:03 PM EDT Impression: 1. No acute abnormality or CT explanation for reported history of abdominal pain. This document has been electronically signed by: Hussain Robert MD on 11/20/2024 18:03:16 Narrative 11/20/2024 6:03 PM EDT INDICATION: Abdominal pain, acute, nonlocalized Exam: Contrast-enhanced CT abdomen and pelvis with multiplanar reformats. Comparison: None. Findings: CT abdomen: Lung bases are clear. Liver is free of focal lesions and intrahepatic ductal dilatation. Gallbladder is absent. Mild fullness of the common hepatic duct at 16 mm AP dimension (measured on 3; 61) is likely sequela of remote cholecystectomy. No radiodense filling defects identified within the biliary tree. Spleen appears unremarkable. Pancreas and adrenal glands appear unremarkable. Kidneys reveal small nonobstructing left renal calculi (3; 73). There may be small left renal upper pole calculi (3; 62), versus some concentration of the contrast within medullary pyramid in this location. No ureteral stones or hydroureteronephrosis. No free intraperitoneal fluid or retroperitoneal masses or adenopathy. Abdominal aorta reveals mild relative ectasia of the infrarenal abdominal aorta at 2.4 cm (3; 83) and moderate calcific athero sclerosis. Bowel loops reveal no abnormal wall thickening or distention. Appendix is not identified, however there is no secondary CT evidence of appendicitis. Mild colonic diverticulosis is present, without CT evidence of diverticulitis. CT pelvis: Uterus is surgically absent. Urinary bladder is free of gross filling defects. No pelvic masses, fluid or adenopathy. Osseous structures reveal no destructive osseous lesions. Procedure Note Hussain Robert MD - 11/20/2024 INDICATION: Abdominal pain, acute, nonlocalized Exam: Contrast-enhanced CT abdomen and pelvis with multiplanarreformats. Comparison: None. Findings: CT abdomen: Lung bases are clear. Liver is free of focal lesions and intrahepatic ductal dilatation. Gallbladder is absent. Mild fullness of the common hepatic duct at 16 mm AP dimension (measured on 3; 61) is likely sequela of remote cholecystectomy. No radiodense filling defects identified within the biliary tree. Spleen appears unremarkable. Pancreas and adrenal glands appear unremarkable. Kidneys reveal small nonobstructing left renal calculi (3; 73). Theremay be small left renal upper pole calculi (3; 62), versus someconcentration of the contrast within medullary pyramid in this location. No ureteral stones or hydroureteronephrosis. No free intraperitoneal fluid or retroperitoneal masses or adenopathy. Abdominal aorta reveals mild relative ectasia of the infrarenalabdominal aorta at 2.4 cm (3; 83) and moderate calcific athero sclerosis. Bowel loops reveal no abnormal wall thickening or distention. Appendixis not identified, however there is no secondary CT evidence ofappendicitis. Mild colonic diverticulosis is present, without CT evidence of diverticulitis. CT pelvis: Uterus is surgically absent. Urinary bladder is free of gross filling defects. No pelvic masses, fluid or adenopathy. Osseous structures reveal no destructive osseous lesions. IMPRESSION: Impression: 1. No acute abnormality or CT explanation for reported history of abdominal pain. This document has been electronically signed by: Hussain Robert MD on 11/20/2024 18:03:16 Rodríguez Smith DO IMG CT PROCEDURES Final Result * ECG 12 lead (11/20/2024 3:36 PM EDT) Only the most recent of3 resultswithin the time period is included. [facility] Ventricular Rate ECG 67 BPM GEMUSE Atrial Rate 67 BPM GEMUSE P-R Interval 168 ms GEMUSE QRS Duration 112 ms GEMUSE Q-T Interval 456 ms GEMUSE QTc 481 ms GEMUSE P Wave [place] 96 degrees GEMUSE R [place] -38 degrees GEMUSE T [place] 50 degrees GEMUSE ECG Interpretation Normal sinus rhythm Left axis deviation Pulmonary disease pattern Voltage criteria for left ventricular hypertrophy Abnormal ECG When compared with ECG of 25-OCT-2024 20:35, No significant change was found Confirmed by MD Nikita, Usman ([id number]) on 11/21/2024 7:45:07 AM GEMUSE 11/20/2024 3:36 PM EDT 11/21/2024 7:45 AM EDT Rodríguez Smith DO ECG ORDERABLES Final Result GEMUSE * CBC auto differential (11/20/2024 3:29 PM EDT) Only the most recent of2 resultswithin the time period is included. [facility] WBC 6.6 4.8 - 10.8 K/mcL LAB HEMETOLOGY METHOD 11/20/2024 4:07 PM EDT [facility] RBC 4.60 3.80 - 4.80 M/mcL LAB HEMETOLOGY METHOD 11/20/2024 4:07 PM EDT [facility] Hemoglobin 12.9 11.5 - 16.0 g/dL LAB HEMETOLOGY METHOD 11/20/2024 4:07 PM EDT [facility] Hematocrit 39.9 35.0 - 47.0 % LAB HEMETOLOGY METHOD 11/20/2024 4:07 PM EDT [facility] MCV 86.7 79.0 - 98.0 FL LAB HEMETOLOGY METHOD 11/20/2024 4:07 PM [facility] MCH 28.0 27.0 - 32.0 pcg LAB HEMETOLOGY METHOD 11/20/2024 4:07 PM [facility] MCHC 32.3 32.0 - 37.0 g/dL LAB HEMETOLOGY METHOD 11/20/2024 4:07 PM [facility] RDW 13.8 11.0 - 15.0 % LAB HEMETOLOGY METHOD 11/20/2024 4:07 PM [facility] Platelets 263 130 - 400 K/mcL LAB HEMETOLOGY METHOD 11/20/2024 4:07 PM [facility] MPV 9.4 7.0 - 11.0 FL LAB HEMETOLOGY METHOD 11/20/2024 4:07 PM [facility] NRBC 0.0 <1.0 % LAB HEMETOLOGY METHOD 11/20/2024 4:07 PM [facility] NRBC Absolute 0.00 <0.10 K/mcL LAB HEMETOLOGY METHOD 11/20/2024 4:07 PM [facility] Neutrophils Relative 62.0 % LAB HEMETOLOGY METHOD 11/20/2024 4:07 PM [facility] Lymphocytes Relative 25.7 % LAB HEMETOLOGY METHOD 11/20/2024 4:07 PM [facility] Monocytes Relative 8.3 % LAB HEMETOLOGY METHOD 11/20/2024 4:07 PM [facility] Eosinophils Relative 3.2 % LAB HEMETOLOGY METHOD 11/20/2024 4:07 PM [facility] Basophils Relative 0.5 % LAB HEMETOLOGY METHOD 11/20/2024 4:07 PM [facility] Immature Granulocytes Relative 0.3 % LAB HEMETOLOGY METHOD 11/20/2024 4:07 PM EDT [facility] Neutrophils Absolute 4.10 1.50 - 7.00 K/mcL LAB HEMETOLOGY METHOD 11/20/2024 4:07 PM EDT [facility] Lymphocytes Absolute 1.70 1.00 - 5.00 K/mcL LAB HEMETOLOGY METHOD 11/20/2024 4:07 PM EDT [facility] Monocytes Absolute 0.55 0.20 - 1.00 K/mcL LAB HEMETOLOGY METHOD 11/20/2024 4:07 PM EDT [facility] Eosinophils Absolute 0.21 0.00 - 0.50 K/[facility] LAB HEMETOLOGY METHOD 11/20/2024 4:07 PM EDT [facility] Basophils Absolute 0.03 0.00 - 0.20 K/mcL LAB HEMETOLOGY METHOD 11/20/2024 4:07 PM EDT [facility] Immature Granulocytes Absolute 0.02 0.00 - 0.03 K/[facility] LAB HEMETOLOGY METHOD 11/20/2024 4:07 PM EDT [facility] Blood Venous blood specimen / Unknown Venipuncture / Unknown 11/20/2024 3:29 PM EDT 11/20/2024 3:58 PM EDT us Rodríguez Smith DO LAB BLOOD ORDERABLES Final Res ult [facility] [address] [place] [address], * Lipase (11/20/2024 3:29 PM EDT) Only the most recent of2 resultswithin the time period is included. Lipase 43 13 - 75 unit/L LAB CHEMISTRY METHOD 11/20/2024 4:22 PM EDT [facility] Blood Venous blood specimen / Unknown Venipuncture / Unknown 11/20/2024 3:29 PM EDT 11/20/2024 3:58 PM EDT us Rodríguez Smith DO LAB BLOOD ORDERABLES Final Res ult [facility] [address] [place] [address], [place] [phone] * (ABNORMAL) Comprehensive metabolic panel (11/20/2024 3:29 PM EDT) Only the most recent of2 resultswithin the time period is included. Sodium 139 133 - 145 mmol/L LAB CHEMISTRY METHOD 11/20/2024 4:22 PM [facility] Potassium 4.2 3.5 - 5.5 mmol/L LAB CHEMISTRY METHOD 11/20/2024 4:22 PM [facility] Chloride 104 96 - 110 mmol/L LAB CHEMISTRY METHOD 11/20/2024 4:22 PM [facility] CO2 29 21 - 32 mmol/L LAB CHEMISTRY METHOD 11/20/2024 4:22 PM [facility] Anion Gap 6 3 - 11 LAB CHEMISTRY METHOD 11/20/2024 4:22 PM [facility] Glucose 119(H) 70 - 100 mg/dL LAB CHEMISTRY METHOD 11/20/2024 4:22 PM [facility] BUN 14 5 - 25 mg/dL LAB CHEMISTRY METHOD 11/20/2024 4:22 PM [facility] Creatinine 0.61 0.50 - 1.10 mg/dL LAB CHEMISTRY METHOD 11/20/2024 4:22 PM [facility] eGFR 93 >=60 mL/min/1. 73m2 LAB CHEMISTRY METHOD 11/20/2024 4:22 PM [facility] Comment:Calculation based on the Chronic Kidney Disease Epidemiology Collaboration (CKD-EPI) equation refit without adjustment for race. BUN/Creatinine Ratio 23.0 LAB CHEMISTRY METHOD 11/20/2024 4:22 PM EDT [facility] Calcium 8.9 8.5 - 10.5 mg/dL LAB CHEMISTRY METHOD 11/20/2024 4:22 PM EDT [facility] AST (SGOT) 24 10 - 42 unit/L LAB CHEMISTRY METHOD 11/20/2024 4:22 PM EDT [facility] ALT (SGPT) 28 10 - 60 unit/L LAB CHEMISTRY METHOD 11/20/2024 4:22 PM EDT [facility] Alkaline Phosphatase 171(H) 42 - 121 unit/L LAB [facility]STR[facility]20[facility]24 [facility] Total Protein 7.3 6.0 - 8.0 g/dL LAB CHEMISTRY METHOD 11[facility]20[facility]2024 4[facility] Albumin 3.6 3.2 - 5.0 g/dL LAB CHEMISTRY METHOD 11/20/2024 4:22 PM EDT [facility] Total Bilirubin 0.4 0.0 - 1.4 mg/dL LAB CHEMISTRY METHOD 11/20/2024 4:22 PM EDT [facility] Blood Venous blood specimen / Unknown Venipuncture / Unknown 11/20/2024 3:29 PM EDT 11/20/2024 3:58 PM EDT us Rodríguez Smith DO LAB BLOOD ORDERABLES Final Res ult [facility] [address] [place] [address], * CT Cervical Spine wo Contrast (10/25/2024 8:50 PM EDT) Anatomical Region Laterality Modality Spine, C-spine Computed Tomogra phy 10/25/2024 9:49 PM EDT Impressions 10/25/2024 9:49 PM EDT 1. No acute findings in the cervical spine. 2. Degenerative changes as described. This document has been electronically signed by: Chrissy Alvarez MD on 10/25/2024 21:49:53 Narrative 10/25/2024 9:49 PM EDT INDICATION: fall, headstrike CT cervical spine without contrast Comparison: None Findings: Cervical alignment is maintained with no subluxation. Vertebral body height is maintained. No acute fracture in the cervical spine. Craniocervical junction is intact. Degenerative changes at C5-6, C6-7 and C7-T1. Prevertebral soft tissues within normal limits. Bilateral thyroid nodules. No consolidation or effusion at the lung apices. Procedure Note Chrissy Alvarez MD - 10/25/2024 INDICATION: fall, headstrike CT cervical spine without contrast Comparison: None Findings: Cervical alignment is maintained with no subluxation. Vertebral body height is maintained. No acute fracture in the cervical spine. Craniocervical junction is intact. Degenerative changes at C5-6, C6-7 and C7-T1. Prevertebral soft tissues within normal limits. Bilateral thyroid nodules. No consolidation or effusion at the lung apices. IMPRESSION: 1. No acute findings in the cervical spine. 2. Degenerative changes as described. This document has been electronically signed by: Chrissy Alvarez MD on 10/25/2024 21:49:[address] PROCEDURES Final Result * CT Angio Chest wo and/or w Contrast (10/25/2024 8:50 PM EDT) Anatomical Region Laterality Modality Body Computed Tomogra phy 10/25/2024 9:45 PM EDT Impressions 10/25/2024 9:45 PM EDT 1. No pulmonary embolus. 2. Bilateral thyroid nodules can be further evaluated with nonemergent thyroid ultrasound. 3. Additional nonacute findings as described. This document has been electronically signed by: Chrissy Alvarez MD on 10/25/2024 21:45:50 Narrative 10/25/2024 9:45 PM EDT INDICATION: right sided pleuritic CP, hx DVTs, also recent fall CT angiography chest with contrast. 3D Postprocessing. Comparison: None Findings: The heart is normal size. RV/LV ratio is normal. The thoracic aorta is normal caliber. Atherosclerotic vascular disease and coronary artery disease. No acute pulmonary embolus. No consolidation, pleural effusion or pneumothorax. Bilateral thyroid nodules with rim calcification on the left measuring 1.4 cm and hypodense nodules in the right lobe the largest 1.3 cm. Thoracic esophagus within normal limits. The visualized upper abdomen demonstrates no acute process. Punctate calcification the dome of the liver. No acute fractures. Degenerative changes thoracic spine. Procedure Note Chrissy Alvarez MD - 10/25/2024 INDICATION: right sided pleuritic CP, hx DVTs, also recent fall CT angiography chest with contrast. 3D Postprocessing. Comparison: None Findings: The heart is normal size. RV/LV ratio is normal. The thoracic aorta is normal caliber. Atherosclerotic vascular diseaseand coronary artery disease. No acute pulmonary embolus. No consolidation, pleural effusion or pneumothorax. Bilateral thyroid nodules with rim calcification on the left measuring1.4 cm and hypodense nodules in the right lobe the largest 1.3 cm. Thoracic esophagus within normal limits. The visualized upper abdomen demonstrates no acute process. Punctate calcification the dome of the liver. No acute fractures. Degenerative changes thoracic spine. IMPRESSION: 1. No pulmonary embolus. 2. Bilateral thyroid nodules can be further evaluated with nonemergent thyroid ultrasound. 3. Additional nonacute findings as described. This document has been electronically signed by: Chrissy Alvarez MD on 10/25/2024 21:45:[address] PROCEDURES Final Result * CT Head wo Contrast (10/25/2024 8:50 PM EDT) Anatomical Region Laterality Modality Head and Neck Computed Tomogra phy 10/25/2024 10:0 0 PM EDT Impressions 10/25/2024 10:00 PM EDT 1. Study limited by artifact and within this limitation no acute intracranial findings are identified. This document has been electronically signed by: Chrissy Alvarez MD on 10/25/2024 22:00:48 Narrative 10/25/2024 10:00 PM EDT INDICATION: fall, headstrike CT head without contrast Comparison: None Findings: Study limited and degraded by artifact. No intra-axial mass, midline shift, hydrocephalus, or acute hemorrhage. There is atrophy. There are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
== END 2024-12-24 09:22 | disposition home or self-care (01) ==
LOC: HO.HGS 08:55
PROVIDERS: PCP Family Medicine; Visit Provider Surgery
DX: K64.9 Unspecified hemorrhoids (principal)
CPT/HCPCS: 46600; 99203

== ENCOUNTER → 2024-12-24 08:55 | Outpatient (BNVA) | payer OTHER, SELFPAY | PROVIDERS: PCP Family Medicine; Visit Provider Surgery | DX: K59.04 Chronic idiopathic constipation (principal); K64.9 Unspecified hemorrhoids; K58.2 Mixed irritable bowel syndrome | CPT/HCPCS: 46600; 99202 ==

== ENCOUNTER 2025-02-23 08:39 | Outpatient (AMB) | payer OTHER, SELFPAY ==
--- NOTE | 2025-02-23 08:41 | A.OFFVIS_ITS ---
Vital Signs 02/23/25 08:49 Weight 205 lb BP 134/60 Blood Pressure Location Rt brachial Position Sitting Pulse 72 Intake Visit Reasons: 2 month follow up Hemorrhoids Intake Note: Patient here for 2mo follow up hemorrhoids. [facility] 12-24-24 Patient c/o: mild improvement. Burning sensation inside rectum. Bleeding with co nstipation. Reports on anf off constipation/ diarrhea little improved with Metamucil regimen. 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 Accompanied by: daughter Jen Zurita Allergies No Known Allergies (No Known Allergies*) Allergy (Verified 02/23/25 08:48) Medication List - Last Reconciled 02/23/25 by Mehul Sarkar MD amlodipine 1 tab PO DAILY aripiprazole 1 tab PO BEDTIME aspirin 1 tab PO DAILY atorvastatin 1 tab PO DAILY ferrous sulfate (FeroSul) 1 tab PO BID furosemide 1 tab PO DAILY metformin 1 tab PO BID metoprolol succinate ER 1 tab PO DAILY multivitamin 1 tab PO DAILY omeprazole 1 cap PO DAILY psyllium seed (sugar) (Metamucil (sugar) oral powder) 1 tbsp PO BID trazodone 100 mg PO BEDTIME triamcinolone acetonide 0.025% 1 appl topical BID venlafaxine 75 mg PO BEDTIME venlafaxine ER 225 mg PO QAM HPI HPI 2 month follow up Hemorrhoids: Details: [age] year old female here for follow-up for her hemorrhoid issues. I had seen her 2 months ago because of some pain and occasional bleeding from hemorrhoids. She does have a known history of diarrhea and constipation I had prescribed her Metamucil then and instructed her to follow up with me in the office. He has multiple medical problems including diabetes, morbid obesity, arthritis and has tremors and is usually wheelchair-bound. She says she continues to have occasional pain and burning with the hemorrhoids. She has minimal bleeding. [facility] Medical History Bleeding hemorrhoids TIA (transient ischemic attack) Asthma Anxiety Depression Sleep apnea Diabetes GERD (gastroesophageal reflux disease) Elevated cholesterol HTN (hypertension) Surgical History Hx of cardiac catheterization Hx of hysterectomy Hx of cholecystectomy H/O colonoscopy History of esophagogastroduodenoscopy (EGD) History of bunionectomy Social History Patient Tobacco Use Status: Former Tobacco user Tobacco use type: Cigarette Review of Systems Const Denies chills and Denies fever(s) Card Reports dyspnea on exertion Resp Reports dyspnea on exertion GI Denies abdominal pain, Reports constipation and Reports diarrhea Reports urinary frequency Physical Exam Vital Signs: Last Vital Signs Pulse 72 02/23/25 08:49 BP 134/60 02/23/25 08:49 Const Other: On wheelchair, appears frail General: comfortable and no acute distress Resp Effort & Inspection: normal respiratory effort Cardio Rate: regular rate GI Other: Rectal exam shows internal external hemorrhoids, on both sides, with prolapse of some internal component, no thrombosis, no inflammation Palpation (GI): Soft to palpation Assessment & Plan Assessment & Plan (1) Bleeding hemorrhoids: Code(s): K64.9 - Unspecified hemorrhoids Category: Medical Plan: She has internal and external hemorrhoids, with some prolapse and burning pain. She says her bleeding is minimal She does have multiple medical problems so I told her they would hold off on any surgical intervention. I will add Calmoseptine for her burning pain. She is to continue with her Metamucil. I will see her in the office in about 3 months to see how she is doing She is comfortable with the plan. Her daughter was with her during the visit. Coding Level of Care Code Est Pt Level 3 (98389) Diagnoses Bleeding hemorrhoids K64.9
[2025-02-23 08:49] VITALS: BP 134/60; PULSE 72
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
--- OUTSIDE RECORDS SUMMARY | 2025-02-23 09:07 | XMS_ITS | Patient Health Record ---
Author Organization [facility] Address [address] [place] [address] Care Team Providers Care Director Of Vendor Management Name Role Phone Darnell Verduzco Primary Care Provider Navin Michaels Unavailable [phone] Allergies No Known Allergies Reason For Referral Referring Provider First Name Darnell Referring Provider Last Name Dax Referred Organization [facility] Referred Provider Navin Hebert Referred Address [address],[place], [place],[address], Referred Provider Specialty Gastroentero logy General Notes Vane Lujan 024 11:52:36 AM EST > REQUESTED A [facility] REFERRAL FOR VISIT WITH DR HEBERT ON 07-01-2024 Referral Priority Routine Reason hemorrhoids Referral Organization [facility] Referring Provider First Name Navin Referring Provider Last Name Sania Referring Provider Speciality Gastroente rology Referred Provider Mehul Sarkar Referred Provider Specialty Surgery Referral Priority Routine Referral Appointment Date 12/24/2024 Medications Medication SIG (Take, Route, Frequency, Duration) Notes Start Date End Date Status Vitamin D-3 Active Metoprolol Succinate ER 100 MG Oral for 30 Active Anastrozole 1 MG 1 tablet Orally Once a day Active ARIPiprazole 20 MG Oral for 21 Active Metamucil 0.36 GM Take 2 with at least 8 ounces of water Orally Once or twice a day for irregular BM's for 30 days 11/27/2024 Active metFORMIN HCl 500 MG 1 tablet with a vivian l Orally Twice a day Active Atorvastatin Calcium 40 MG Oral for 90 Active Tylenol Active Culturelle Digestive Health - Oral for 30 Active Furosemide 40 MG/4ML 1 ml Orally Once a day Active methIMAzole 5 MG 1 tablet Orally Once a day for 30 day(s) 11/27/2024 Active Venlafaxine HCl ER 150 MG 1 capsule with food Orally Once a day Active Omeprazole 20 MG 1 capsule Orally Onc e a day Active traZODone HCl 50 MG 1 tablet at bedtime Orally Once a day Active Lisinopril 20 MG 1 tablet Orally Once a day Not-Taking methIMAzole 5 MG 1 tablet Orally Once a day Active Iron 325 (65 Fe) MG 1 tablet Orally twic e a day Active Aspirin Adult Low Dose 81 MG 1 tablet Orally Once a day Active Cyclobenzaprine HCl 10mg Not-Taking FeroSul 325 (65 Fe) MG 1 tablet Orally t wice a day Active amLODIPine Besy-Benazepril HCl 5-10 MG 1 capsule Orally Once a day Active Antacid Active Multivitamin Adult - Orally Active Immunizations Vaccine Route Administration Date Status Comme nts Influenza Unknown 03/02/2015 Administered Influenza Unknown 03/02/2016 Administered Influenza Unknown 04/14/2020 Administered Influenza Unknown 06/03/2024 Administered Problems Problem Type SNOMED Code ICD Code Onset Dates Problem Status W/U Status Risk Notes Problem Rectal bleeding (26277137) Rectal bleeding (K62.5) Active confirmed Problem Hemorrhoids (73781588) Hemorrhoids (K64.9) Active confirmed Problem 259086340 Encounter for screening for malignant neoplasm of colon (Z12.11) Active confirmed Problem 639394125 History of adenomatous polyp of colon (Z86.010) Active confirmed Problem 262072208 Acute posthemorrhagic anemia (D62) Active confirmed Problem Screening for malignant neoplasm of rectum (140335059) Encounter for screening for malignant neoplasm of rectum (Z12.12) Active confirmed Problem 57993673 Abdominal pain, epigastric (R10.13) Active confirmed Problem 335111637 Gastroesophageal reflux disease without esophagitis (K21.9) Active confirmed Problem 801834279 Fatty liver (K76.0) Active confirmed Problem 628180216 Gastroesophageal reflux disease, esophagitis presence not specified (K21.9) Active confirmed Problem 78406361 Iron deficiency anemia due to chronic blood loss (D50.0) Active confirmed Problem Rectal pain (34154995) Rectal pain (K62.89) Active confirmed Problem 04583922 Constipation, unspecified constipation type (K59.00) Active confirmed Problem Irregular bowel habits (630345855) Irregular bowel habits (R19.8) Active confirmed Problem 56028296 Irritable bowel syndrome with both constipation and diarrhea (K58.2) Active confirmed Problem Diverticular disease of colon (329076780) Diverticular disease of colon (K57.30) Active confirmed Problem 34543305 Esophageal dysphagia (R13.10) Active confirmed Vital Signs Temperature 98.2 degrees Fahrenheit 07/01/2024 Blood pressure diastolic 77 mm Hg 11/27/2024 Height 64 in 11/27/2024 Blood pressure systolic 111 mm Hg 11/27/2024 Weight 220 lbs 11/27/2024 BMI 37.76 kg/m2 11/27/2024 Encounters Encounter Location Date Provider Diagnosis [facility] [address] [place] [phone] 07/01/2024 Navin Hebert History of adenomato us polyp of colon Z86.010 ; Gastroesophageal reflux disease, esophagitis presence not specified K21.9 ; Constipation, unspecified constipation type K59.00 and Encounter for screening for malignant neoplasm of colon Z12.11 [facility] [address] [place] [phone] 11/27/2024 Navin Hebert Rectal pain K62.89 ; Rectal bleeding K62.5 ; Hemorrhoids K64.9 and Irregular bowel habits R19.8 Assessments Encounter Date Diagnosis (ICD Code) Assessment Notes Treatment Notes Treatment Clinical Notes Section Notes 07/01/2024 History of adenomatous polyp of colon (ICD-10 - Z86.010) Call me if anything changes with the bowels such as bleeding and we can reassess you for a possible colonoscopy. Overall, Ena appears to be doing well from a GI standpoint. She is not having any new nor worrisome GI complaints. We did review the results of her most recent colonoscopy just over 3 years ago with removal of only small tubular adenomas. At this time I advised her that given her age, multiple medical issues, multiple previous colonoscopies and just minimal findings in 2020 other than a large inflammatory colon polyp which was not adenomatous, I would be inclined to hold off on any further screening colonoscopies at this point in her life. She also is having issues with mobility and having to use a walker or wheelchair the great majority of the time. Therefore, we reviewed that the colonoscopy prep, the procedure, and the anesthesia make the risk to benefit ratio of the screening procedure unacceptable. Therefore, I recommended holding off on a screening colonoscopy. We did review that certainly if she develops any significant bowel changes or bleeding she should contact me and we can always reassess the situation if need be. I did advise to continue a daily omeprazole for her reflux. I advised her to stay on a high-fiber diet with plenty of fluids to try to help maintain her bowel regularity and treat the irritable bowel syndrome. If things otherwise remains stable she will see me on a p.r.n. basis. Ena and her daughter were comfortable with this plan. Thank you again for allowing me to have participated in Ena's care. Please do not hesitate to contact me if I can be of any further assistance in the future. 07/01/2024 Gastroesophageal reflux disease, esophagitis presence not specified (ICD-10 - K21.9) Overall, Ena appears to be doing well from a GI standpoint. She is not having any new nor worrisome GI complaints. We did review the results of her most recent colonoscopy just over 3 years ago with removal of only small tubular adenomas. At this time I advised her that given her age, multiple medical issues, multiple previous colonoscopies and just minimal findings in 2020 other than a large inflammatory colon polyp which was not adenomatous, I would be inclined to hold off on any further screening colonoscopies at this point in her life. She also is having issues with mobility and having to use a walker or wheelchair the great majority of the time. Therefore, we reviewed that the colonoscopy prep, the procedure, and the anesthesia make the risk to benefit ratio of the screening procedure unacceptable. Therefore, I recommended holding off on a screening colonoscopy. We did review that certainly if she develops any significant bowel changes or bleeding she should contact me and we can always reassess the situation if need be. I did advise to continue a daily omeprazole for her reflux. I advised her to stay on a high-fiber diet with plenty of fluids to try to help maintain her bowel regularity and treat the irritable bowel syndrome. If things otherwise remains stable she will see me on a p.r.n. basis. Ena and her daughter were comfortable with this plan. Thank you again for allowing me to have participated in Ena's care. Please do not hesitate to contact me if I can be of any further assistance in the future. 11/27/2024 Rectal bleeding (ICD-10 - K62.5) Overall, Ena appears relatively well. Her current GI symptoms seem quite consistent with her know history of hemorrhoids and irrgeular bowel movements with a component of constipation and associated straining. I did review all of this in detail with Ena and her daughter today. Given her mutiple previous colonoscopies including the one in 2020, her clinical history, and her multiple comorbidities, I advised her that I would not recommend a colonosocpy at this time. I advised her of the need to improve her bowel movement regimen with supplemental fiber with plenty of fluids, as well stool softeners, in hopes of decreasing her constipation and the associated straining. I did advise her to continue any over the counter topical treatment for the hemorrhoids as well. I shall also make a referral for her to see Dr. Sarkar in the event her symptoms prove refractory to conservative medical therapy. She will otherwise see me as needed. I did advise Ena and her daughter to contact me if she has any further GI issues that I can be of assistance with. They were both comfortable with this plan. Thank you again for allowing me to have participated in Ena's care. Please do not hesitate to contact me if I can be of any further assistance in the future. 11/27/2024 Rectal pain (ICD-10 - K62.89) Overall, Ena appears relatively well. Her current GI symptoms seem quite consistent with her know history of hemorrhoids and irrgeular bowel movements with a component of constipation and associated straining. I did review all of this in detail with Ena and her daughter today. Given her mutiple previous colonoscopies including the one in 2020, her clinical history, and her multiple comorbidities, I advised her that I would not recommend a colonosocpy at this time. I advised her of the need to improve her bowel movement regimen with supplemental fiber with plenty of fluids, as well stool softeners, in hopes of decreasing her constipation and the associated straining. I did advise her to continue any over the counter topical treatment for the hemorrhoids as well. I shall also make a referral for her to see Dr. Sarkar in the event her symptoms prove refractory to conservative medical therapy. She will otherwise see me as needed. I did advise Ena and her daughter to contact me if she has any further GI issues that I can be of assistance with. They were both comfortable with this plan. Thank you again for allowing me to have participated in Ena's care. Please do not hesitate to contact me if I can be of any further assistance in the future. 07/01/2024 Constipation, unspecified constipation type (ICD-10 - K59.00) Overall, Ena appears to be doing well from a GI standpoint. She is not having any new nor worrisome GI complaints. We did review the results of her most recent colonoscopy just over 3 years ago with removal of only small tubular adenomas. At this time I advised her that given her age, multiple medical issues, multiple previous colonoscopies and just minimal findings in 2020 other than a large inflammatory colon polyp which was not adenomatous, I would be inclined to hold off on any further screening colonoscopies at this point in her life. She also is having issues with mobility and having to use a walker or wheelchair the great majority of the time. Therefore, we reviewed that the colonoscopy prep, the procedure, and the anesthesia make the risk to benefit ratio of the screening procedure unacceptable. Therefore, I recommended holding off on a screening colonoscopy. We did review that certainly if she develops any significant bowel changes or bleeding she should contact me and we can always reassess the situation if need be. I did advise to continue a daily omeprazole for her reflux. I advised her to stay on a high-fiber diet with plenty of fluids to try to help maintain her bowel regularity and treat the irritable bowel syndrome. If things otherwise remains stable she will see me on a p.r.n. basis. Ena and her daughter were comfortable with this plan. Thank you again for allowing me to have participated in Ena's care. Please do not hesitate to contact me if I can be of any further assistance in the future. 11/27/2024 Hemorrhoids (ICD-10 - K64.9) We will refer you to see Dr. Sarkar for evaluation of the hemorrhoids. In the meantime start some Metamucil fiber pills with 2 pills once or twice a day with a lot of water. Overall, Ena appears relatively well. Her current GI symptoms seem quite consistent with her know history of hemorrhoids and irrgeular bowel movements with a component of constipation and associated straining. I did review all of this in detail with Ena and her daughter today. Given her mutiple previous colonoscopies including the one in 2020, her clinical history, and her multiple comorbidities, I advised her that I would not recommend a colonosocpy at this time. I advised her of the need to improve her bowel movement regimen with supplemental fiber with plenty of fluids, as well stool softeners, in hopes of decreasing her constipation and the associated straining. I did advise her to continue any over the counter topical treatment for the hemorrhoids as well. I shall also make a referral for her to see Dr. Sarkar in the event her symptoms prove refractory to conservative medical therapy. She will otherwise see me as needed. I did advise Ena and her daughter to contact me if she has any further GI issues that I can be of assistance with. They were both comfortable with this plan. Thank you again for allowing me to have participated in Ena's care. Please do not hesitate to contact me if I can be of any further assistance in the future. 07/01/2024 Encounter for screening for malignant neoplasm of colon (ICD-10 - Z12.11) Overall, Ena appears to be doing well from a GI standpoint. She is not having any new nor worrisome GI complaints. We did review the results of her most recent colonoscopy just over 3 years ago with removal of only small tubular adenomas. At this time I advised her that given her age, multiple medical issues, multiple previous colonoscopies and just minimal findings in 2020 other than a large inflammatory colon polyp which was not adenomatous, I would be inclined to hold off on any further screening colonoscopies at this point in her life. She also is having issues with mobility and having to use a walker or wheelchair the great majority of the time. Therefore, we reviewed that the colonoscopy prep, the procedure, and the anesthesia make the risk to benefit ratio of the screening procedure unacceptable. Therefore, I recommended holding off on a screening colonoscopy. We did review that certainly if she develops any significant bowel changes or bleeding she should contact me and we can always reassess the situation if need be. I did advise to continue a daily omeprazole for her reflux. I advised her to stay on a high-fiber diet with plenty of fluids to try to help maintain her bowel regularity and treat the irritable bowel syndrome. If things otherwise remains stable she will see me on a p.r.n. basis. Ena and her daughter were comfortable with this plan. Thank you again for allowing me to have participated in Ena's care. Please do not hesitate to contact me if I can be of any further assistance in the future. 11/27/2024 Irregular bowel habits (ICD-10 - R19.8) Overall, Ena appears relatively well. Her current GI symptoms seem quite consistent with her know history of hemorrhoids and irrgeular bowel movements with a component of constipation and associated straining. I did review all of this in detail with Ena and her daughter today. Given her mutiple previous colonoscopies including the one in 2020, her clinical history, and her multiple comorbidities, I advised her that I would not recommend a colonosocpy at this time. I advised her of the need to improve her bowel movement regimen with supplemental fiber with plenty of fluids, as well stool softeners, in hopes of decreasing her constipation and the associated straining. I did advise her to continue any over the counter topical treatment for the hemorrhoids as well. I shall also make a referral for her to see Dr. Sarkar in the event her symptoms prove refractory to conservative medical therapy. She will otherwise see me as needed. I did advise Ena and her daughter to contact me if she has any further GI issues that I can be of assistance with. They were both comfortable with this plan. Thank you again for allowing me to have participated in Ena's care. Please do not hesitate to contact me if I can be of any further assistance in the future. Plan Of Treatment Pending Test Test Name Order Date IRON + IBC (FE) 09/19/2016 FERRITIN 09/19/2016 CBC w DIFF 09/19/2016 HEPATITIS B PROFILE 01/27/2014 HEPATITIS C ANTIBODY 01/27/2014 XR BARIUM SWALLOW-ESOPHAGUS 07/03/2017 XR BARIUM SWALLOW-ESOPHAGUS 11/10/2013 Future Test Test Name Order Date COLONOSCOPY 10/21/2015 COLONOSCOPY 12/21/2020 Insurance Providers Payer Name Payer Address Payer Phone Subscriber Number Group Number Insured Name Patient Relationship to Insured Coverage Start Date Coverage End Date [employer] [address] [place] [phone] [id number] ENA CHILD Self - patient is the insured MEDICARE [facility] [address] [place] [address] [phone] [id number] ENA CHILD Self - patient is the insured 3 Medical (General) History Medical History History ICD Code Tubular adenomas removed in 2007, 09/2010, and December of 2015--also noted were diverticuli, and internal and external hemorrhoids GERD-EGD in 09/2010-gastritis , no H.pylori--no esophagitis nor Ortez's esophagus--she had an upper GI series in October of 2013 which was consistent with reflux, and without any sign of significant hiatal hernia nor obstruction Depression/anxiety Asthma--uses inhalers Denies [place],CVA,renal disease NIDDM Sleep apnea with a CPAP mask Fatty liver seen on a CAT sc an in December 2013 with mild hepatomegaly-her AST was 74 with an ALT of 69, and otherwise normal liver profile, and CBC with platelet count--- her liver workup in December 2013 was negative, including alpha-1 antitrypsin level, iron studies, autoimmune studies, and hepatitis B and C studies She describes a negative car diac catheterization in early September, at [facility]. Anemia and reported melena i n August 2016 for which she was hospitalized at [facility]--EGD in 08/2016 at [facility] with Dr. Soto--mild gastritis only--no esophageal disease described Hypertension Hyperlipidemia Edema of legs TIA Burn on abdomen but no surgery Neg. labs for celiac disease in 2018 Chronic Cellulitis Colonoscopy 12/2020 with 2 sm all tubular adenomas and an approx. 1.5cm inflammatory polyp removed from the sigmoid colon Left-sided breast cancer Hyperthyroidism Surgical History Surgery Date(Month/Year) Foot surgery on the left for a diabetic foot ulcer Breast surgery on the left for cancer ap prox 2020 with XRT Surgery on foot right JUAN PABLO Cholecystectomy Hospitalization History Reason Date(Month/Year)
== END 2025-02-23 09:02 | disposition home or self-care (01) ==
LOC: HO.HGS 08:40
PROVIDERS: PCP Family Medicine; Visit Provider Surgery
DX: K64.9 Unspecified hemorrhoids (principal)
CPT/HCPCS: 99213

== ENCOUNTER → 2025-02-23 08:39 | Outpatient (BNVA) | payer OTHER, SELFPAY | PROVIDERS: PCP Family Medicine; Visit Provider Surgery | DX: K64.9 Unspecified hemorrhoids (principal) | CPT/HCPCS: 99212 ==

== ENCOUNTER 2025-05-25 08:52 | Outpatient (AMB) | payer OTHER, SELFPAY ==
--- OUTSIDE RECORDS SUMMARY | 2025-05-20 11:00 | XMS_ITS | Encounter Summary ---
Author Organization [facility] Address [address] [place] [address] Care Team Providers Care Fitting Room Supervisor Name Role Phone Darnell Verduzco MD Primary Care Provider [phone]- [phone] Reason for Visit * Reason Comments 24 HOUR HOLTER * Cardiac Stress Testing (Routine) - Closed Specialty Diagnoses / Procedures Referred By Contac t Referred To Contact Cardiology Diagnoses Dizziness Procedures Cardiac holter monitor (<= 48 hours) IL ECG EXTERNAL UP TO 48 HOURS RECORDING IL ECG EXTERNAL < 48 HOURS CONTINUOUS RECORDING/STORAGE R&I BY A PHYS/QHP [place] EXTERNAL ECG UP TO 48 HRS INCL RECORDING SCANNING ANLYS W REPORT Akbar Hernandez MD [address] [place] [phone] Phone: tel: fax: [facility] Referral ID Status Reason Start Date Expiration Date Visits Re quested Visits Authorized [id number] Closed 04/25/2025 04/25/2026 1 1 Encounter Details Date Type Department Care Team (Late st Contact Info) Description 05/20/2025 11:00 AM EST Ancillary Procedure [facility] [address] [place] [address] Dizziness Social History Tobacco Use Types Packs/Day Years Used Date Smoking Tobacco: Never Smokeless Tobacco: Never Alcohol Use Standard Drinks/Week Comments Never 0 (1 standard drink = 0.6 oz pur e alcohol) Housing Instability Answer Date Recorde d Are you worried that in the next 2 months you may not have stable housing? No 04/24/2025 Food Access & Nutrition Answer Date Rec orded Do you have access to a vari ety of food including fruits and vegetables? Yes 04/24/2025 Access to Healthcare Answer Date Record ed Within the last 3 months, ho w many times did you visit the emergency department for your medical care? 1 04/24/2025 Health Literacy Answer Date Recorded How often do you need to hav e someone help you when you read instructions, pamphlets, or other written material from your doctor or pharmacy? Always 04/24/2025 Caregiver: How often do you need to have someone help you when you read instructions, pamphlets, or other written material from your doctor or pharmacy? Not on file 04/24/2025 Financial Risk Answer Date Recorded How hard is it for you to pa y for the very basics like food, housing, medical care, and air conditioning / heating? Hard 04/24/2025 Transportation Answer Date Recorded Has the lack of transportati on kept you from meetings, work, or from getting things needed for daily living? No Has the lack of transportati on kept you from medical appointments or from getting medications? No 04/24/2025 Social Isolation Answer Date Recorded How often do you feel lonely or isolated from th ose around you? Never 04/24/2025 Food Risk Answer Date Recorded Within the past 12 months we worried whether our food would run out before we got money to buy more. Sometimes true 025 Within the past 12 months th e food we bought just didn't last and we didn't have money to get more. Sometimes true 04/24/2025 Dependent Care Answer Date Recorded Do you need help finding or paying for care for your loved ones. For example, child health associate or elderly care for an older adult? No 04/24/2025 Education Answer Date Recorded Do you think completing more education or training, like finishing a GED, going to college, or learning a trade, would be helpful for you? N/A 04/24/2025 Employment and Income Answer Date Recor ded During the last four weeks, have you been actively looking for work? No 04/24/2025 Living Situation Answer Date Recorded What is your living situation? Unrecognized valu e 04/24/2025 Interpersonal Safety Answer Date Record ed Physical Abuse Unrecognized value 04/24/2025 Verbal Abuse Unrecognized value 04/24/2025 Comments Unknown Sex and Gender Information Value Date Recorded Sex Assigned at Female 06/18/2024 3:06 PM EST Legal Sex Female 6:44 AM EST Gender Identity Female 06/18/2024 3:06 PM EST Sexual Orientation Straight 04/24/2025 2: 00 AM EDT documented as of this encounter Functional Status * Are you deaf or do you have serious difficulty hearing? Answer Date of Assessment Author No 05/17/2024 9:08 AM Joe Antony RN * Are you blind or do you have serious difficulty seeing, even when wearing glasses? Answer Date of Assessment Author No 05/17/2024 9:08 AM Joe Antony RN * Do you have serious difficulty walking or climbing stairs? Answer Date of Assessment Author No 05/17/2024 9:08 AM Joe Antony RN * Do you have serious difficulty dressing or bathing? Answer Date of Assessment Author No 05/17/2024 9:08 AM Joe Antony RN * Because of a physical, mental, or emotional condition, do you have serious difficulty doing errandsalone such as visiting the doctor? Answer Date of Assessment Author No 05/17/2024 9:08 AM Joe Antony RN documented as of this encounter Mental Status * Because of a physical, mental, or emotional condition, do you have serious difficulty concentrating, remembering, or making decisions? (5 years old or older) Answer Entry Date Author No 05/17/2024 9:08 AM Joe Antony RN documented in this encounter Plan of Treatment Upcoming Encounters Date Type Department Care Team (Late st Contact Info) Description 07/16/2025 9:00 AM EST Office Visit Orthopedic Surgery - [place] [address] [address] Usman Frye DPM [address] [address] Pending Results Name Type Priority Associated Diagnoses Date /Time Cardiac holter monitor (<= 48 hours) Cardiac Services Routine Dizziness 05/20/2025 10:56 AM EST documented as of this encounter Visit Diagnoses Diagnosis Dizziness Dizziness and giddiness documented in this encounter Care Teams Fitting Room Supervisor Relationship Specialty Start Date End Date Darnell Verduzco MD [address] [place] [phone] PCP - General Internal Medicine 04/07/22 documented as of this encounter
--- NOTE | 2025-05-25 09:05 | MHC.OFFVIS ---
Intake Visit Reasons: 3 month follow up Hemorrhoids Intake Note: This patient presents for a three month follow-up for hemorrhoids. Pt c/o; report soreness, The samething like last time . Medical Language Specialist Required: No Accompanied by: Family/Other Allergies No Known Allergies (No Known Allergies*) Allergy (Verified 05/25/25 09:14) Medication List - Last Reconciled 05/25/25 by Mehul Sarkar MD amlodipine 1 tab PO DAILY aripiprazole 1 tab PO BEDTIME aspirin 1 tab PO DAILY atorvastatin 1 tab PO DAILY ferrous sulfate (FeroSul) 1 tab PO BID furosemide 1 tab PO DAILY menthol-zinc oxide 0.44-20.6 % (Calmoseptine) 1 appl topical QID PRN metformin 1 tab PO BID metoprolol succinate ER 1 tab PO DAILY multivitamin 1 tab PO DAILY omeprazole 1 cap PO DAILY psyllium seed (sugar) (Metamucil (sugar) oral powder) 1 tbsp PO BID trazodone 100 mg PO BEDTIME triamcinolone acetonide 0.025% 1 appl topical BID venlafaxine 75 mg PO BEDTIME venlafaxine ER 225 mg PO QAM HPI HPI 3 month follow up Hemorrhoids: Details: She is here for follow-up for her hemorrhoid issues. I saw her last time in the office last January,. She describes burning with her hemorrhoids and she also had a history of constipation. I had put her on Metamucil as well as Calmoseptine for symptomatic relief. She has multiple medical problems including diabetes and morbid obesity. She says she still has some burning pain periodically although says that the Calmoseptine has been helping a lot. However, recently, she has been having frequent diarrhea and she says that this has been worsening her symptoms. Her daughter also says that she has developed a bed sore on the left buttock. [facility] Medical History Bleeding hemorrhoids TIA (transient ischemic attack) Asthma Anxiety Depression Sleep apnea Diabetes GERD (gastroesophageal reflux disease) Elevated cholesterol HTN (hypertension) Surgical History Hx of cardiac catheterization Hx of hysterectomy Hx of cholecystectomy H/O colonoscopy History of esophagogastroduodenoscopy (EGD) History of bunionectomy Social History Patient Tobacco Use Status: Former Tobacco user Tobacco use type: Cigarette Review of Systems Const Denies chills and Denies fever(s) Card Denies chest pain at rest Resp Denies cough GI Denies abdominal pain and Reports diarrhea Musc Reports back pain and Reports arthralgias Physical Exam Const Other: On wheelchair General: comfortable and no acute distress Resp Effort & Inspection: normal respiratory effort Cardio Rate: regular rate GI Other: Rectal exam shows external internal hemorrhoids, both the left and right side without any examination nor thrombosis There is a healing stage 2 decubitus ulcer on the left buttock area probably about 3 cm in widest dimension Palpation (GI): Soft to palpation Assessment & Plan Assessment & Plan (1) Bleeding hemorrhoids: Code(s): K64.9 - Unspecified hemorrhoids Category: Medical Plan: She denies further bleeding although admits to burning. She says Calmoseptine helps with her symptoms. I explained to her the control of her diarrhea we will help with her hemorrhoid issues as well. She can take Imodium or Lomotil p.r.n. for her diarrhea I advised her to avoid staying too long on a wheelchair or in bed as she has developed this decubitus ulcer on the left buttock. She can otherwise follow up with me on a p.r.n. basis Coding Level of Care Code Est Pt Level 3 (84521) Diagnoses Bleeding hemorrhoids K64.9
--- OUTSIDE RECORDS SUMMARY | 2025-05-25 09:24 | XMS_ITS | Encounter Summary ---
Author Organization [facility] Address [address] [place] [address] Care Team Providers Care Reducing Salon Attendant Name Role Phone Darnell Verduzco MD Primary Care Provider [phone]- [phone] Reason for Visit * Reason Onset Date Comments DX REVIEW 05/11/2025 ECHO Encounter Details Date Type Department Care Team (Late st Contact Info) Description 05/11/[address] [facility] [address] [place] [address] Akbar Hernandez MD [address] [place] [phone] Social History Tobacco Use Types Packs/Day Years [...] for your loved ones. For example, child day care provider or elderly care for an older adult? [...] Joe Antony RN documented in this encounter Progress Notes * Janessa Rios - 05/12/2025 1:00 PM EST Please review the message below - the patient has rescheduled the appointment to 05/20/25. * Janessa Rios - 05/11/2025 1:08 PM EST We received the order you placed for this patient to have an ECHOCARDIOGRAM and the appointment is scheduled for 07/16/25. The order has an associated diagnosis of: Dizziness [R42] This diagnosis is not considered to support medical necessity for the test ordered according to insurance guidelines. Please review to see if there is another diagnosis, including signs/symptoms, that is appropriate to be associated with this test and update the associated diagnosis on the current o rder. If there is not a covered diagnosis associated with this test within 24hrs of the scheduled appointment, the patient will be notified they will need to sign a waiver accepting responsibility for payment if their insurance denies it. This may result in a cancellation of the test. Thank you, [facility] Scheduling documented in this encounter Plan of Treatment Upcoming Encounters Date Type Department Care Team (Late st Contact Info) Description 07/16/2025 9:00 AM EST Office Visit Orthopedic Surgery - [place] [address] [address] Usman Frye, DPM [address] [address] documented as of this encounter Visit Diagnoses Not on filedocumented in this encounter Care Teams Reducing Salon Attendant Relationship Specialty Start Date End Date Darnell Verduzco MD [facility] [address] [place] [phone] PCP - General Internal Medicine 04/07/22 documented as of this encounter
--- OUTSIDE RECORDS SUMMARY | 2025-05-25 09:27 | XMS_ITS | Encounter Summary ---
Author Organization [facility] Address [address] [facility] [address] [place] [address] Phone Care Team Providers Care Quantitative Manager Name Role Phone Darnell Verduzco MD Primary Care Provider + Encounter Details Date Type Department Care Team (Late st Contact Info) Description 07/06/2020 Procedure Pass [facility] Periop [address] [place] [address] Social History Tobacco Use Types Packs/Day Years Used Date Smoking Tobacco: Former Smokeless Tobacco: Never Comments Unknown Sex and Gender Information Value Date Recorded Sex Assigned at Not on file Legal Sex Female 7:53 PM EST Gender Identity Not on file Sexual Orientation Not on file documented as of this encounter Plan of Treatment Not on file documented as of this encounter Visit Diagnoses Not on filedocumented in this encounter Care Teams Quantitative Manager Relationship Specialty Start Date End Date Darnell Verduzco MD [address] [place] [address] PCP - General Family Medicine 06/19/20 documented as of this encounter Additional Source Comments The information contained in this document represents components of the legal health record. It is not the complete legal health record.[facility]
--- OUTSIDE RECORDS SUMMARY | 2025-05-25 09:27 | XMS_ITS | Patient Health Record ---
Author Organization [facility] Address [address] [place] [address] Care Team Providers Care Blind Aide Name Role Phone Darnell Verduzco Primary Care Provider Navin Michaels Unavailable [phone] Allergies No Known Allergies Reason For Referral Reason hemorrhoids Referral Organization [facility] Referring Provider First Name Navin Referring Provider Last Name Sania Referring Provider Speciality Gastroente rology Referred Provider Mehul Sarkar Referred Provider Specialty Surgery Referral Priority Routine Referral Appointment Date 12/24/2024 Medications Medication SIG (Take, Route, Frequency, Duration) Notes Start Date End Date Status Vitamin D-3 Active Metoprolol Succinate ER 100 MG Tablet Extended Release 24 Hour Oral; Duration: 30 Active Anastrozole 1 MG Tablet 1 tablet Orally Once a day Active ARIPiprazole 20 MG Tablet Oral; Duration: 21 Active metFORMIN HCl 500 MG Tablet 1 tablet with a meal Orally Twice a day Active Atorvastatin Calcium 40 MG Tablet Oral; Duration: 90 Active Tylenol Active Culturelle Digestive Health - Capsule Oral; Duration: 30 Activ e Furosemide 40 MG/4ML Solution 1 ml Orally Once a day Active methIMAzole 5 MG Tablet 1 tablet Orally Once a day; Duration: 30 day(s) 11/27/2024 Active Venlafaxine HCl ER 150 MG Capsule Extended Release 24 Hour 1 capsule with food Orally Once a day Active Omeprazole 20 MG Capsule Delayed Release 1 capsule Orally Once a day Active traZODone HCl 50 MG Tablet 1 tablet at bedtime Orally Once a day Active Psyllium Fiber 0.52 GM Capsule TAKE 2 CAPSULES BY MOUTH WITH AT LEAST 8 OUNCES OF WATER ONCE A DAY OR TWICE A DAY FOR IRREGULAR BOWEL MOVEMENTS; Duration: 25 Active Lisinopril 20 MG Tablet 1 tablet Orally Once a day Not-Taking/PRN methIMAzole 5 MG Tablet 1 tablet Orally Once a day Active Iron 325 (65 Fe) MG Tablet 1 tablet Orally twice a day Active Aspirin Adult Low Dose 81 MG Tablet Delayed Release 1 tablet Orally Once a day Active Cyclobenzaprine HCl 10mg Not-Taking/PRN FeroSul 325 (65 Fe) MG Tablet 1 tablet Orally twice a day Active amLODIPine Besy-Benazepril HCl 5-10 MG Capsule 1 capsule Orally Once a day Active Antacid Active Multivitamin Adult - Tablet Orally Active Immunizations Vaccine Route Administration Date Status Comme nts Influenza Unknown 03/02/2015 Administered Influenza Unknown 03/02/2016 Administered Influenza Unknown 04/14/2020 Administered Influenza Unknown 06/03/2024 Administered Social History Social History Additional Details Category Social Info Options Details Miscellaneous: Marital status: single Occupation: disabled Section Notes: Nonsmoker; no alcohol Nonsmoker; no alcohol Nonsmoker; no alcohol Nonsmoker; no alcohol Nonsmoker; no alcohol Nonsmoker; no alcohol Nonsmoker; no alcohol Nonsmoker; no alcohol Nonsmoker; no alcohol Nonsmoker; no alcohol Problems Problem Type SNOMED Code ICD Code Onset Dates Problem Status W/U Status Risk Notes Problem Rectal bleeding (51835495) Rectal bleeding (K62.5) Active confirmed Problem Hemorrhoids (84424601) Hemorrhoids (K64.9) Active confirmed Problem Screening for malignant neoplasm of colon (611969029) Encounter for screening for malignant neoplasm of colon (Z12.11) Active confirmed Problem History of adenomatous polyp of colon (762519369) History of adenomatous polyp of colon (Z86.010) Active confirmed Problem Acute posthemorrhagic anemia (011629494) Acute posthemorrhagic anemia (D62) Active confirmed Problem Screening for malignant neoplasm of rectum (051510601) Encounter for screening for malignant neoplasm of rectum (Z12.12) Active confirmed Problem Epigastric pain (88036254) Abdominal pain, epigastric (R10.13) Active confirmed Problem Gastroesophageal reflux disease without esophagitis (551687106) Gastroesophageal reflux disease without esophagitis (K21.9) Active confirmed Problem Fatty liver (524957887) Fatty liver (K76.0) Active confirmed Problem Gastroesophageal reflux disease (352647598) Gastroesophageal reflux disease, esophagitis presence not specified (K21.9) Active confirmed Problem Iron deficiency anemia due to chronic blood loss (031292448) Iron deficiency anemia due to chronic blood loss (D50.0) Active confirmed Problem Rectal pain (42511891) Rectal pain (K62.89) Active confirmed Problem Constipation (57992356) Constipation, unspecified constipation type (K59.00) Active confirmed Problem Irregular bowel habits (726124570) Irregular bowel habits (R19.8) Active confirmed Problem Irritable bowel syndrome (66381382) Irritable bowel syndrome with both constipation and diarrhea (K58.2) Active confirmed Problem Diverticular disease of colon (560535128) Diverticular disease of colon (K57.30) Active confirmed Problem Esophageal dysphagia (49791637) Esophageal dysphagia (R13.10) Active confirmed Vital Signs Temperature 98.2 degrees Fahrenheit 07/01/2024 Blood pressure diastolic 77 mm Hg 11/27/2024 Height 64 in 11/27/2024 Blood pressure systolic 111 mm Hg 11/27/2024 Weight 220 lbs 11/27/2024 BMI 37.76 kg/m2 11/27/2024 Encounters Encounter Location Date Provider Diagnosis [facility] [address] [place] [phone] 07/01/2024 Navin Lui History of adenomato us polyp of colon Z86.010 ; Gastroesophageal reflux disease, esophagitis presence not specified K21.9 ; Constipation, unspecified constipation type K59.00 and Encounter for screening for malignant neoplasm of colon Z12.11 [facility] [address] [place] [phone] 11/27/2024 Navin Lui Rectal pain K62.89 ; Rectal bleeding K62.5 [...] Date [employer] [address] [place] [phone] [id number] ENA CHILD Self - patient is the insured MEDICARE OF [place] [address] [place] [address] [id number] ENA CHILD Self - patient is the [...] hernia nor obstruction Depression/anxiety Asthma--uses inhalers Denies VA,CVA,renal disease NIDDM Sleep apnea with a CPAP [...] car diac catheterization in early September, at [facility]. Anemia and reported melena i n August 2016 for which she was hospitalized at [facility]--EGD in 08/[address] [facility] with [address]. Soto--mild gastritis only--no esophageal disease described Hypertension Hyperlipidemia Edema of legs TIA Burn on abdomen but no surgery Neg. labs for celiac disease in 2018 Chronic Cellulitis Colonoscopy 12/2020 with 2 sm all tubular adenomas and an approx. 1.5cm inflammatory polyp removed from the sigmoid colon Left-sided breast cancer Hyperthyroidism Surgical History Surgery Date(Month/Year) Cholecystectomy JUAN PABLO Surgery on foot right Breast surgery on the left for cancer ap prox 2021 with XRT Foot surgery on the left for a diabetic foot ulcer Hospitalization History Reason Date(Month/Year)
--- OUTSIDE RECORDS SUMMARY | 2025-05-25 09:27 | XMS_ITS | Clinical Summary ---
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 Brown MD LAB BLOOD ORDERABLES Final Result [facility] [address] [address] * Vascular US Duplex Lower Extremity Venous Right (04/23/2025 9:05 PM EDT) Anatomical Region Laterality Modality Vascular, Abdomen Ultrasound 04/24/2025 3:11 AM EDT Impressions 04/24/2025 3:12 AM EDT No deep vein thrombosis identified in the right lower extremity veins. -------- FINAL REPORT -------- Dictated By: Keren Martinez Dictated Date: 04/24/2025 03:11 ET Assigned Physician: Keren Martinez Reviewed and Electronically Signed By: Keren Martinez Signed Date: 04/24/2025 03:12 ET Workstation ID: [id number] Transcribed By: Self Edit Transcribed Date: 04/24/2025 03:11 ET Narrative 04/24/2025 3:12 AM EDT INDICATION: edema COMPARISON: August 2023 TECHNIQUE: Ultrasound of the right lower extremity veins is performed using color-flow Doppler, graded compression with B mode Doppler with spectral analysis FINDINGS: The common femoral, superficial femoral and popliteal veins compress normally throughout their length. Normal response to distal augmentation is seen with calf compression. Included calf vessels are patent on color Doppler. Procedure Note Keren Martinez MD - 04/24/2025 INDICATION: edema COMPARISON: August 2023 TECHNIQUE: Ultrasound of the right lower extremity veins is performedusing color-flow Doppler, graded compression with B mode Doppler withspectral analysis FINDINGS: The common femoral, superficial femoral and popliteal veinscompress normally throughout their length. Normal response to distalaugmentation is seen with calf compression. Included calf vessels arepatent on color Doppler. IMPRESSION: No deep vein thrombosis identified in the right lower extremity veins. -------- FINAL REPORT -------- Dictated By: Keren Martinez Dictated Date: 04/24/2025 03:11 ET Assigned Physician: Keren Martinez Reviewed and Electronically Signed By: Keren Martinez Signed Date: 04/24/2025 03:12 ET Workstation ID: [id number] Transcribed By: Self Edit Transcribed Date: 04/24/2025 03:11 ET us Lucio Diop MD CV VASCULAR PROCEDURES Final Res ult * XR Chest 1 View (04/23/2025 8:06 PM EDT) Anatomical Region Laterality Modality Body Radiographic Kaela ging 04/24/2025 9:07 AM EDT Impressions 04/24/2025 9:09 AM EDT Nonspecific patchy opacity at the left base at the costophrenic angle. There could be a small pleural effusion, or this could represent parenchymal opacity; atelectasis or early pneumonia is possible. -------- FINAL REPORT -------- Dictated By: Siva Hernandez Dictated Date: 04/24/2025 09:07 ET Assigned Physician: Siva Hernandez Reviewed and Electronically Signed By: Siva Hernandez Signed Date: 04/24/2025 09:09 ET Workstation ID: [id number] Transcribed By: Self Edit Transcribed Date: 04/24/2025 09:07 ET Narrative 04/24/2025 9:09 AM EDT PROCEDURE: AP chest radiograph. HISTORY: dizziness. COMPARISON: 10/25/2024. FINDINGS: Atherosclerotic calcifications of the aorta. Patchy opacity at the left base of the costophrenic angle could represent trace pleural fluid and/or adjacent parenchymal opacity. No pneumothorax. Degenerative changes of the spine and shoulders. Procedure Note Siva Hernandez MD - 04/24/2025 PROCEDURE: AP chest radiograph. HISTORY: dizziness. COMPARISON: 10/25/2024. FINDINGS: Atherosclerotic calcifications of the aorta. Patchy opacity at the leftbase of the costophrenic angle could represent trace pleural fluid and/oradjacent parenchymal opacity. No pneumothorax. Degenerative changes ofthe spine and shoulders. IMPRESSION: Nonspecific patchy opacity at the left base at the costophrenic angle.There could be a small pleural effusion, or this could representparenchymal opacity; atelectasis or early pneumonia is possible. -------- FINAL REPORT -------- Dictated By: Siva Hernandez Dictated Date: 04/24/2025 09:07 ET Assigned Physician: Siva Hernandez Reviewed and Electronically Signed By: Siva Hernandez Signed Date: 04/24/2025 09:09 ET Workstation ID: [id number] Transcribed By: Self Edit Transcribed Date: 04/24/2025 09:07 ET Lucio Diop MD IMG XR PROCEDURES Final Result * Electrocardiogram, 12 lead (04/23/2025 7:23 PM EDT) [facility] Ventricular Rate ECG 75 BPM GEMUSE Atrial Rate 75 BPM GEMUSE P-R Interval 160 ms GEMUSE QRS Duration 112 ms GEMUSE Q-T Interval 442 ms GEMUSE QTc 493 ms GEMUSE P Wave [place] 50 degrees GEMUSE R [place] -52 degrees GEMUSE T [place] 97 degrees GEMUSE ECG Interpretation Sinus rhythm with Premature atrial complexes Left anterior fascicular block Left ventricular hypertrophy with repolarization abnormality ( R in aVL , Aurelio product , Romhilt-Daly ) Statement not found (#1146) Abnormal ECG When compared with ECG of 20-NOV-2024 15:36, Premature atrial complexes are now Present Non-specific change in ST segment in Lateral leads Confirmed by Margarita RIVERA JAMES ([id number]) on 04/24/2025 6:27:21 PM GEMUSE 04/23/2025 7:23 PM EDT 04/24/2025 6:27 PM EDT Lucio Diop MD ECG ORDERABLES Final Result Performing Organization Address City/State/[facility] Co de Phone Number GEMUSE * Troponin I high sensitivity (NOW) (04/23/2025 7:18 PM EDT) [facility] High Sensitivity Troponin I 15 <=54 ng/L LAB CHEMISTRY METHOD 04/23/2025 8:34 PM EDT [facility] Blood Venous blood specimen / Unknown Venipuncture / Unknown 04/23/2025 7:18 PM EDT 04/23/2025 8:03 PM EDT Narrative [facility] - 04/23/2025 8:34 PM EDT High levels of biotin in samples may falsely decrease hsTroponin values. Use caution when interpreting hsTroponin results in patients taking biotin who exhibit renal impairment (eGFR <60) or in patients taking more than 20 mg/day of biotin. Lucio Diop MD LAB BLOOD ORDERABLES Final Resul t [facility] [address] [place] [address], [place] [phone] * Activated partial thromboplastin time (04/23/2025 7:18 PM EDT) aPTT 29.4 24.1 - 39.3 sec LAB COAGULATION METHOD 04/23/2025 8:16 PM EDT [facility] Blood Venous blood specimen / Unknown Venipuncture / Unknown 04/23/2025 7:18 PM EDT 04/23/2025 8:03 PM EDT us Lucio Diop MD LAB BLOOD ORDERABLES Final Resul t Performing Organization Address [facility] Co de Phone Number [facility] [address] [place] [address], [place] [phone] * Prothrombin time with INR (04/23/2025 7:18 PM EDT) Protime 13.1 10.6 - 13.9 sec LAB COAGULATION METHOD 04/23/2025 8:16 PM EDT [facility] INR 1.1 LAB COAGULATION METHOD 04/23/2025 8:16 PM EDT [facility] Blood Venous blood specimen / Unknown Venipuncture / Unknown 04/23/2025 7:18 PM EDT 04/23/2025 8:03 PM EDT us Lucio Diop MD LAB BLOOD ORDERABLES Final Resul t Performing Organization Address City/[facility]/ZIP Co de Phone Number [facility] [address] [place] [address], [place] [phone] * D-Dimer (04/23/2025 7:18 PM EDT) D-Dimer, Quant (D-DU) <150 <=230 ng/mL DDU LAB COAGULATION METHOD 04/24/2025 3:16 AM EDT [facility] Blood Venous blood specimen / Unknown Venipuncture / Unknown 04/23/2025 7:18 PM EDT 04/23/2025 8:03 PM EDT Narrative [facility] - 04/24/2025 3:16 AM EDT D-Dimer <230 ng/mL (D-Dimer units) is the threshold for exclusion of DVT/PE. D-Dimer may be elevated in: Critically ill, severely infected, trauma patients, DIC, acute CVA, acute [place], unstable angina, AF, old age, , and smoking. D-Dimer may be decreased with: Initiation of heparin therapy and oral anticoagulants. Kita BERGER LAB BLOOD ORDERABLES Final Re sult Performing Organization Address [facility]/ZIP Co de Phone Number [facility] [address] [place] [address], [place] [phone] * (ABNORMAL) Carbamazepine level, total (Tegretol) (04/23/2025 7:18 PM EDT) Carbamazepine Level <0.5(L) 8.0 - 12.0 mcg/mL LAB CHEMISTRY METHOD 04/23/2025 10:05 PM EDT [facility] Blood Venous blood specimen / Unknown Venipuncture / Unknown 04/23/2025 7:18 PM EDT 04/23/2025 8:03 PM EDT Lucio Diop MD LAB BLOOD ORDERABLES Final Resul t Performing Organization Address [facility]/ZIP Co de Phone Number [facility] [address] [place] [address], [place] [phone] * CT Angio Head/Neck Stroke wo and/or w Contrast (04/23/2025 7:13 PM EDT) Anatomical Region Laterality Modality Head and Neck Computed Tomogra phy 04/23/2025 8:07 PM EDT Addenda Addendum by Siva Hsu MD on 04/23/2025 8:15 PM EDT ADDENDUM: This report was discussed with Dr. Llanos on Apr 23, 2025 20:14:00 EDT. This document has been electronically signed by: Christy Wilson on 04/23/2025 20:15:05 Impressions 04/23/2025 8:07 PM EDT Patent head and neck CTA. If clinical concern persists consider follow-up MRI. Questionable artifact versus right upper lobe PEs. Clinical correlation advised and if concern is present CTA chest. This document has been electronically signed by: Siva Hsu MD on 04/23/2025 20:07:06 Narrative 04/23/2025 8:07 PM EDT INDICATION: stroke like symptoms CT angiography head and neck with contrast. 3D Postprocessing. Comparison: CT/MD/SR - CT ANGIO NECK WO AND OR W CONTRAST - 06/19/24 17:00 EST Findings: Motion and streak artifact limit evaluation. Aortic arch and cervical great vessels are patent. Calcified atheromatous plaques in the bilateral carotid bifurcations with similar severe stenoses in the left and mild stenoses in the right. Ectasia of the bilateral cervical segments of the ICAs. Additional mildly scattered atheromatous plaque of the distal cervical segment ICAs/petrous segments. Faint opacification of the origins of the bilateral vertebral arteries felt to be artifactual. Cervical arterial vasculature is otherwise patent. Hypoplastic left A1 segment JOSEPH. Mild right and moderate left bilateral stenoses in the cavernous and paraclinoid segments of the ICAs. Cerebral arteries are patent. No intracranial arterial aneurysms. No abnormal intracranial enhancement. Calcified multinodular thyroid gland redemonstrated for example in the right measuring 1.5 cm. This may be further evaluated with ultrasound. Questionable filling defect versus artifact in the right upper lobe pulmonary arteries for example series 2, image 607. Multilevel spondylosis with osteophytosis, uncovertebral hypertrophy, facet arthropathy and degenerative disc disease. Osteopenia. Procedure Note Siva Hsu MD - 04/23/2025 INDICATION: stroke like symptoms CT angiography head and neck with contrast. 3D Postprocessing. Comparison: CT/MD/SR - CT ANGIO NECK WO AND OR W CONTRAST - 06/19/2417:00 EST Findings: Motion and streak artifact limit evaluation. Aortic arch and cervical great vessels are patent. Calcified atheromatous plaques in the bilateral carotid bifurcationswith similar severe stenoses in the left and mild stenoses in the right. Ectasia of the bilateral cervical segments of the ICAs. Additionalmildly scattered atheromatous plaque of the distal cervical segmentICAs/petrous segments. Faint opacification of the origins of the bilateral vertebral arteries felt to be artifactual. Cervical arterial vasculature is otherwise patent. Hypoplastic left A1 segment JOSEPH. Mild right andmoderate left bilateral stenoses in the cavernous and paraclinoid segments of the ICAs. Cerebral arteries are patent. No intracranial arterial aneurysms. No abnormal intracranial enhancement. Calcified multinodular thyroid gland redemonstrated for example in the right measuring 1.5 cm. This may be further evaluated with ultrasound. Questionable filling defect versus artifact in the right upper lobe pulmonary arteries for example series 2, image 607. Multilevel spondylosis with osteophytosis, uncovertebral hypertrophy, facet arthropathy and degenerative disc disease. Osteopenia. IMPRESSION: Patent head and neck CTA. If clinical concern persists considerfollow-up MRI. Questionable artifact versus right upper lobe PEs. Clinical correlation advised and if concern is present CTA chest. This document has been electronically signed by: Siva Hsu MD on 04/23/2025 20:07:06 Lucio Diop MD IMG CT PROCEDURES Edited Result - Final * CT Head Stroke wo Contrast (04/23/2025 7:13 PM EDT) Anatomical Region Laterality Modality Head and Neck Computed Tomogra phy 04/23/2025 7:23 PM EDT Addenda Addendum by Siva Hsu MD on 04/23/2025 7:26 PM EDT ADDENDUM: This report was discussed with Dr. Emily Llanos on Apr 23, 2025 19:24:00 EDT. This document has been electronically signed by: Meka Crespo on 04/23/2025 19:26:27 Impressions 04/23/2025 7:23 PM EDT 1. No acute intracranial hemorrhage or territorial infarction. 2. Additional findings as described. This document has been electronically signed by: iSva Hsu MD on 04/23/2025 19:23:48 Narrative 04/23/2025 7:23 PM EDT INDICATION: stroke like symptoms CT head without contrast Comparison: CT - CT HEAD WO CONTRAST - 10/25/24 20:44 EDT Findings: Extensively scattered subcortical and periventricular hypoattenuation, likely in keeping with chronic small vessel ischemic disease. Global parenchymal volume loss with disproportionate prominence of the ventricles and CSF spaces, can be seen in the setting of normal pressure hydrocephalus and should be correlated clinically. No acute territorial infarction, intracranial hemorrhage or midline shift. Empty sella is demonstrated, nonspecific. No significant atrophy-like change or white matter disease. There is no sinus or mastoid fluid. The orbits are unremarkable. There is no acute fracture. Procedure Note Siva Hsu MD - 04/23/2025 INDICATION: stroke like symptoms CT head without contrast Comparison: CT - CT HEAD WO CONTRAST - 10/25/24 20:44 EDT Findings: Extensively scattered subcortical and periventricular hypoattenuation, likely in keeping with chronic small vessel ischemic disease. Global parenchymal volume loss with disproportionate prominence of theventricles and CSF spaces, can be seen in the setting of normal pressure hydrocephalus and should be correlated clinically. No acute territorial infarction, intracranial hemorrhage or midline shift. Empty sella is demonstrated, nonspecific. No significant atrophy-like change or white matter disease. There is no sinus or mastoid fluid. The orbits are unremarkable. There is no acute fracture. IMPRESSION: 1. No acute intracranial hemorrhage or territorial infarction. 2. Additional findings as described. This document has been electronically signed by: Siva Hsu MD on 04/23/2025 19:23:48 us Lucio Diop MD IMG CT PROCEDURES Edited Result - Final * POC glucose manually resulted (04/23/2025 7:01 PM EDT) Blood Capillary blood specimen / Unknown 04/23/2025 7:01 PM EDT us Lucio Diop MD POINT OF CARE TEST ENTER/EDIT OR DERABLES Final Result from Last 3 Months Insurance [employer] Advance Directives Documents on File Type Date Recorded Patient Service Girl Expl anation Health Care Decision (hx) [...] Care Decision (hx) 03/28/2022 AD WARD DIRECTIVE * Full Code - Default (Latest Code Status on File) Date Activated Date Inactivated Comments 04/23/2025 10:16 PM 04/25/2025 4:39 PM This is o rder is used when code status has not been discussed with the patient, or code status is otherwise unknown/unconfirmed To update the patient's code status, place a code status order. Do not modify or discontinue any currently active code status orders. Care Teams Public Relations Representative Relationship Specialty Start Date End Date Darnell Verduzco MD [facility] [address] [place] [phone] PCP - General Internal Medicine 04/07/22
== END 2025-05-25 09:23 | disposition home or self-care (01) ==
LOC: HO.HGS 08:53
PROVIDERS: PCP Family Medicine; Visit Provider Surgery
DX: K64.9 Unspecified hemorrhoids (principal)
CPT/HCPCS: 99213

== ENCOUNTER → 2025-05-25 08:52 | Outpatient (BNVA) | payer OTHER, SELFPAY | PROVIDERS: PCP Family Medicine; Visit Provider Surgery | DX: K64.9 Unspecified hemorrhoids (principal) | CPT/HCPCS: 99212 ==